=== PATIENT | male | born 1970 | race Caucasian/White ===

== ENCOUNTER 2020-08-14 10:21 | Outpatient (REF) | payer BC, SELFPAY ==
[2020-08-14 13:40] LABS: MANUAL DIFF FLAG NO
[2020-08-14 13:46] LABS: Basophils Percent Auto 0.3 % (0-2); Eosinophils Absolute Auto 0.3 X10*3/uL (0.0-0.4); Eosinophils Percent Auto 4.4 % (0-4); Hematocrit 46.4 % (42-52); Hemoglobin 15.3 g/dl (14.0-18.0); Imm Gran Abs Auto 0.02 X10*3/uL (0.00-0.03); Imm Gran Pct Auto 0.3 % (0.0-0.4); Lymphocytes Absolute Auto 1.2 X10*3/uL (1.2-4.9); Lymphocytes Percent Auto 19.3 % (20-40); Mean Corpuscular Hemoglobin 28.2 pg (27.0-33.0); Mean Corpuscular Volume 85.6 fL (80-98); Mean Platelet Volume 9.3 fL (9.4-12.4); Monocytes Absolute Auto 0.6 X10*3/uL (0.1-1.2); Monocytes Percent Auto 9.2 % (2-11); Neutrophils Absolute Auto 4.2 X10*3/uL (2.0-8.3); Neutrophils Percent Auto 66.5 % (45-73); Platelet Count 296 X10*3/uL (160-400); Red Blood Count 5.42 X10*6/uL (4.60-5.80); Red Cell Distribution Width 12.7 % (11.0-16.0); White Blood Count 6.3 X10*3/uL (4.8-10.8)
[2020-08-14 14:09] LABS: Alanine Aminotransferase 18 U/L (0-40); Albumin Level 4.2 g/dL (3.5-5.0); Alkaline Phosphatase 69 U/L (39-117); Anion Gap 12 (12-20); Aspartate Amino Transferase 15 U/L (5-37); Bilirubin Total 0.9 mg/dL (0.0-1.0); Blood Urea Nitrogen 14 mg/dL (9-16); Calcium 9.2 mg/dL (8.4-10.2); Carbon Dioxide 26 mmol/L (22-29); Chloride 102 mmol/L (96-108); Cholesterol 185 mg/dL; Estimated Glomerular Filt Rate > 60; Glucose Fasting 99 mg/dL (60-99); HDL Cholesterol 45 mg/dL; LDL Cholesterol Calculated 120 mg/dl; Potassium 4.3 mmol/l (3.3-5.1); Sodium 136 mmol/L (135-145); Total Protein 6.9 g/dL (6.5-8.0); Triglycerides 100 mg/dL
== END 2020-08-14 10:22 | disposition home or self-care (01) ==
LOC: HO.10HDL 10:21
PROVIDERS: Visit Provider Internal Medicine
DX: E55.9 Vitamin D deficiency, unspecified (principal); I10 Essential (primary) hypertension; Z00.00 Encounter for general adult medical examination without abnormal findings
CPT/HCPCS: 36415; 80053; 80061; 82306; 85025

== ENCOUNTER → 2020-10-07 15:27 | Outpatient (BNVA) | payer BC, SELFPAY | PROVIDERS: PCP Internal Medicine; Visit Provider Internal Medicine | DX: Z76.89 Persons encountering health services in other specified circumstances (principal) ==

== ENCOUNTER → 2020-10-22 09:13 | Outpatient (REF) | payer BC, SELFPAY | LOC: HO.SL 09:13 | PROVIDERS: Visit Provider Internal Medicine | DX: G47.33 Obstructive sleep apnea (adult) (pediatric) (principal) | CPT/HCPCS: 95806 ==

== ENCOUNTER → 2020-11-25 09:48 | Outpatient (BNVA) | payer BC, SELFPAY | PROVIDERS: PCP Internal Medicine; Visit Provider Internal Medicine ==

== ENCOUNTER 2021-02-22 10:19 | Outpatient (REF) | payer BC, SELFPAY ==
[2021-02-22 11:17] LABS: Anion Gap 13 (12-20); Blood Urea Nitrogen 16 mg/dL (9-16); Calcium 9.5 mg/dL (8.4-10.2); Carbon Dioxide 26 mmol/L (22-29); Chloride 107 mmol/L (96-108); Estimated Glomerular Filt Rate > 60; Glucose Random 97 mg/dL (60-115); Potassium 4.3 mmol/L (3.3-5.1); Sodium 142 mmol/L (135-145)
[2021-02-22 11:40] LABS: Vitamin D 25-OH Total 33.4 ng/mL (>30)
== END 2021-02-22 10:20 | disposition home or self-care (01) ==
LOC: HO.LAB 10:19
PROVIDERS: PCP Internal Medicine; Visit Provider Internal Medicine
DX: I10 Essential (primary) hypertension (principal); E55.9 Vitamin D deficiency, unspecified
CPT/HCPCS: 36415; 80048; 82306

== ENCOUNTER 2021-03-07 17:52 | Outpatient (REF) | payer BC, SELFPAY ==
[2021-03-07 18:42] LABS: Influenza A PCR NEGATIVE (Negative); Influenza B PCR NEGATIVE (Negative); Resp Syncy Virus RNA Qual PCR NEGATIVE (Negative); SARS COV2 PCR INHOUSE NEGATIVE (Negative)
== END 2021-03-07 17:53 | disposition home or self-care (01) ==
LOC: HO.LNP 17:52
PROVIDERS: Visit Provider Internal Medicine
DX: R05 Cough (principal); Z20.822 Contact with and (suspected) exposure to COVID-19
CPT/HCPCS: 0241U

== ENCOUNTER 2021-10-29 11:02 | Outpatient (REF) | payer BC, SELFPAY ==
[2021-10-29 11:20] LABS: COVID-19 Test Negative (Negative)
== END 2021-10-29 11:03 | disposition home or self-care (01) ==
LOC: HO.LNP 11:02
PROVIDERS: PCP Internal Medicine; Visit Provider Internal Medicine
DX: Z20.822 Contact with and (suspected) exposure to COVID-19 (principal)
CPT/HCPCS: 87635

== ENCOUNTER 2021-12-08 14:17 | Outpatient (REF) | payer BC, SELFPAY ==
[2021-12-08 15:06] LABS: Influenza A PCR NEGATIVE (Negative); Influenza B PCR NEGATIVE (Negative); Resp Syncy Virus RNA Qual PCR NEGATIVE (Negative); SARS COV2 PCR INHOUSE NEGATIVE (Negative)
== END 2021-12-08 14:18 | disposition home or self-care (01) ==
LOC: HO.LNP 14:17
PROVIDERS: Visit Provider Internal Medicine
DX: R53.83 Other fatigue (principal); R50.9 Fever, unspecified; Z20.822 Contact with and (suspected) exposure to COVID-19
CPT/HCPCS: 0241U

== ENCOUNTER → 2021-12-30 09:54 | Outpatient (BNVA) | payer BC, SELFPAY | PROVIDERS: PCP Internal Medicine; Visit Provider Internal Medicine | DX: Z13.89 Encounter for screening for other disorder (principal) ==

== ENCOUNTER 2022-05-01 08:21 | Day surgery (SDC) | payer BC, SELFPAY ==
[2022-04-27 12:51] VITALS: BMI 39.6
--- NOTE | 2022-04-30 09:26 | P.CONAN_ITS ---
Documented by User: Doris Harrell NP 04/30/22 09:26 HPI - Anesthesia Eval Consult details Narrative: 51yo M for Colonoscopy PMFSH Active Problems Active Problems: All Active Problems (Updated 04/27/22 @ 12:45 by Aliyah Narvaez, MAGDA) Nocturnal hypoxemia due to obesity (Acute) Obesity, morbid (Acute) Excessive daytime sleepiness (Acute) ONDINA (obstructive sleep apnea) (Acute) Obesity (BMI 35.0-39.9 without comorbidity) (Acute) Past Medical History Medical History (Updated 04/27/22 @ 12:45 by Aliyah Narvaez, RN) Anxiety and depression Asthma Cerebral palsy Excessive daytime sleepiness Nocturnal hypoxemia due to obesity Obesity (BMI 35.0-39.9 without comorbidity) Obesity, morbid ONDINA (obstructive sleep apnea) Surgical History Surgical History (Updated 04/27/22 @ 12:45 by Aliyah Narvaez, MAGDA) History of hip surgery History of surgery Hx of foot surgery Social History Social History Patient Tobacco Use Status: Former Tobacco user Are you DNR?: No Advance Directives: No Advance Directives Information Provided: Yes Nutrition Risks: No Nutritional Risk Meds Allergies Allergy/AdvReac Type Severity Reaction Status Date / Time aspirin [ASA] Allergy Unknown SWELLING Verified 04/27/22 12:47 Home Medications Medication Instructions Recorded Confirmed Last Taken Type atenolol 25 mg tablet 25 mg PO DAILY 10/07/20 04/27/22 Unknown History bupropion HCl 150 mg 24 hr tablet, 150 mg PO DAILY 10/07/20 04/27/22 Unknown History extended release bupropion HCl 300 mg 24 hr tablet, 300 mg PO DAILY 10/07/20 04/27/22 Unknown History extended release cholecalciferol (vitamin D3) 25 25 mcg PO DAILY 10/07/20 04/27/22 Unknown History mcg (1,000 unit) capsule trazodone 50 mg tablet 100 mg PO BEDTIME 11/25/20 04/27/22 Unknown History valsartan 160 mg tablet 160 mg PO DAILY 12/30/21 04/27/22 Unknown History Exam Exam Date and Time: April 30, [id number] Height,Weight and Vital Signs: Height 5 ft 7.5 in Weight 116.573 kg Assessment and Plan Assessment Anesthesia Assessment: Chart Reviewed Documented by User: Stefani Keith MD 05/01/22 09:33 [facility] Past Medical History Medical History (Updated 04/27/22 @ 12:45 by Aliyah Narvaez, MAGDA) Anxiety and depression Asthma Cerebral palsy Excessive daytime sleepiness Nocturnal hypoxemia due to obesity Obesity (BMI 35.0-39.9 without comorbidity) Obesity, morbid ONDINA (obstructive sleep apnea) Family History Family history of problems with anesthesia: No Surgical History Surgical History (Updated 04/27/22 @ 12:45 by Aliyah Narvaez RN) History of hip surgery History of surgery Hx of foot surgery History of Problems with Anesthesia: No Social History Social History Patient Tobacco Use Status: Former Tobacco user Are you DNR?: No Advance Directives: No Advance Directives Information Provided: Yes Nutrition Risks: No Nutritional Risk Meds Allergies Allergy/AdvReac Type Severity Reaction Status Date / Time aspirin [ASA] Allergy Unknown SWELLING Verified 04/27/22 12:47 Home Medications Medication Instructions Recorded Confirmed Last Taken Type atenolol 25 mg tablet 25 mg PO DAILY 10/07/20 04/27/22 Unknown History bupropion HCl 150 mg 24 hr tablet, 150 mg PO DAILY 10/07/20 04/27/22 Unknown History extended release bupropion HCl 300 mg 24 hr tablet, 300 mg PO DAILY 10/07/20 04/27/22 Unknown History extended release cholecalciferol (vitamin D3) 25 25 mcg PO DAILY 10/07/20 04/27/22 Unknown History mcg (1,000 unit) capsule trazodone 50 mg tablet 100 mg PO BEDTIME 11/25/20 04/27/22 Unknown History valsartan 160 mg tablet 160 mg PO DAILY 12/30/21 04/27/22 Unknown History Exam Airway Mallampati Class: III TM Dist: >3cm Neck ROM: Full Assessment and Plan Assessment Anesthesia Assessment: Anesthesia Plan Discussed Final Anesthetic Review Family History of Problems with Anesthesia: No History of Problems with Anesthesia: No NPO: Yes ASA Class: III Final Preanesthetic Review: No Changes in Pt Med Stat, Meds/Allgs Chart Reviewed, Consent Obtained/Reviewed and Anes Risks/Benef Reviewed Patient Risk: Intermediate Procedure Risk: Low Anesthetic Plan Anesthetic Plan: MAC: Disposition: Standard PACU
[2022-05-01 09:27] VITALS: BP 126/79; PULSE 72; RESP 18; TEMP 36.6; O2SAT 96
[2022-05-01] MEDS: Lactated Ringers 1,000 ML 100 ML IVCONT (09:28)
--- NOTE | 2022-05-01 10:21 | MHC.SHP ---
Pre-Procedural Eval Section A Date of Service: 05/01/22 Section B Chief Complaint: screening Details of Present Illness: see H&P no changes Relevant Family History (Specify if Yes): No Relevant Social History: None Present Medications: see Short Stay Collaborative assessment Medical History: No relevant PMH History of Previous Operations: No relevant previous surgery Allergies: Allergies Allergy/AdvReac Type Severity Reaction Status Date / Time aspirin [ASA] Allergy Unknown SWELLING Verified 04/27/22 12:47 Review of Systems Sugical H&P ROS: Negative: Constitution, Cardiovascular, Respiratory, Neurological, Psychiatric, Hem-Onc, Allergic/Immunologic, Gastrointestinal, Genitourinary, Musculoskeletal, Integumentary, Endocrine and Eyes/Ears/Nose/Throat Exam Surgical H&P Exam: Normal: HEENT, Normal: Heart, Normal: Lungs, Normal: Extremities, Normal: Abdomen, Normal: Skin and Normal: Neurological Plan I have reviewed the history and physical and performed a pertinent physical examination on my patient. No changes have occurred unless specified.
[2022-05-01 10:48] VITALS: BP 136/76; PULSE 76; RESP 16; TEMP 36.2; O2SAT 96
--- NOTE | 2022-05-01 10:52 | PM.OP ---
Brief Operative Note Date of Service: 05/01/22 Pre-op diagnosis: screening Post-op diagnosis: same (colon polyp) Surgeon: Alireza Davila Anesthesia: MAC Was an Automation Application Engineer used for this Procedure?: No Estimated blood loss (mL): 2 Pathology: other Condition: stable Disposition: PACU
[2022-05-01 11:03] VITALS: BP 128/89; PULSE 66; RESP 18; TEMP 36.2; O2SAT 96
--- NOTE | 2022-05-01 22:01 | OP_ITS ---
SURGEON: Alireza Davila MD INDICATIONS: Colon cancer screening. PREOPERATIVE DIAGNOSIS: POSTOPERATIVE DIAGNOSIS: PROCEDURE PERFORMED: Colonoscopy to the terminal ileum with biopsy. ESTIMATED BLOOD LOSS: COMPLICATIONS: ANESTHESIA: Monitored anesthesia care. ASSISTANTS: SPECIMENS: DESCRIPTION OF PROCEDURE: History and physical was performed. The risks and benefits of the procedure were explained to the patient. Informed consent was obtained. The patient was placed in the left lateral decubitus position. A digital rectal exam was performed and was found to be normal. The Olympus pediatric video colonoscope was introduced into the rectum and advanced to the cecum without difficulty. The cecum was identified by transillumination, palpation, and identification of the ileocecal valve. Examination was performed. The scope was removed. He tolerated the procedure well and was taken to recovery area in stable condition. FINDINGS: The terminal ileum was examined and appeared normal, the visualized colonic mucosa was normal, and the cecum was a less than 5 mm sessile polyp, which was removed with the biopsy forceps. No other polyps were identified. The quality of the prep was good. Retroflexed examination showed some small internal hemorrhoids. IMPRESSION: Colon polyp. RECOMMENDATION: Follow up the biopsy results. MD KATHERINE Zhong/ROSA / [id number]
== END 2022-05-01 11:45 | disposition home or self-care (01) ==
PROVIDERS: PCP Internal Medicine; Visit Provider Internal Medicine Gastroenterology
PROC: 0DJD8ZZ Inspection of Lower Intestinal Tract, Via Natural or Artificial Opening Endoscopic (ICD-10-PCS; CPT 45378; principal; 2022-05-01 10:20)
DX: Z12.11 Encounter for screening for malignant neoplasm of colon (principal); D12.0 Benign neoplasm of cecum; K64.8 Other hemorrhoids; G80.9 Cerebral palsy, unspecified; I10 Essential (primary) hypertension; J45.909 Unspecified asthma, uncomplicated; G47.33 Obstructive sleep apnea (adult) (pediatric); F41.8 Other specified anxiety disorders; Z79.899 Other long term (current) drug therapy; Z88.8 Allergy status to other drugs, medicaments and biological substances
CPT/HCPCS: 45380; 88305; J2250

== ENCOUNTER → 2022-12-30 10:30 | Outpatient (BNVA) | payer BC, SELFPAY | PROVIDERS: PCP Internal Medicine; Visit Provider Internal Medicine | DX: Z13.89 Encounter for screening for other disorder (principal) ==

== ENCOUNTER 2023-07-28 11:00 | Outpatient (AMB) | payer BC, SELFPAY ==
[2023-07-28 11:09] VITALS: BP 130/68; PULSE 121; O2SAT 95; BMI 41.5
--- NOTE | 2023-07-28 11:09 | MHC.OFFVIS ---
Intake Vital Signs 07/28/23 11:09 Height 5 ft 7.5 in Weight 269 lb BMI 41.5 BP 130/68 Blood Pressure Location Lt brachial Position Sitting Pulse 121 H Pulse Source Pulse Oximeter Pulse Oximetry (%) 95 Oxygen Delivery Method Room Air Intake Visit Reasons: ondina Intake Note: pt is here for follow up and states cpap is going well, no issues. Some coughing does occur mostly at end of the day. Contract Manager Required: No Allergies aspirin [ASA] Allergy (Unknown, Verified 07/28/23 11:22) SWELLING Medication List - Last Reconciled 07/28/23 by Pauline Starr MD atenolol 25 mg PO DAILY bupropion HCl 300 mg PO DAILY bupropion HCl 150 mg PO DAILY lorazepam 1 mg PO DAILY PRN losartan 1 tab PO DAILY melatonin 5 mg PO BEDTIME PRN multivitamin (Daily Multi-Vitamin tablet) 1 tab PO DAILY Do you need a note to return to daycare/school/sports/work: No HPI ondina HPI Details Ruma is 53 years old gentleman morbidly obese with BMI 41.5 , he is confirmed case of obstructive sleep apnea which is being treated with the CPAP. He uses CPAP with auto PAP mode and pressure setting of 6-16 cm. Has been very compliant and sleeps good. He voices no issues with the mask or CPAP device. His only failure is in weight reduction. Has he is not able to do much exercise, he remains relatively inactive, does not. Have full control on diet So has not been able to lose any weight. *RUMA IS A CASE OF CEREBRAL PALSY SINCE , AND HIS GAIT IS UNSTABLE, HE USES THE A SPECIAL CANE ON THE RIGHT SIDE. [facility] Medical History Anxiety and depression Asthma Cerebral palsy Excessive daytime sleepiness Nocturnal hypoxemia due to obesity Obesity (BMI 35.0-39.9 without comorbidity) Obesity, morbid ONDINA (obstructive sleep apnea) Surgical History History of hip surgery History of surgery Hx of foot surgery Social History Patient Tobacco Use Status: Former Tobacco user Review of Systems Const All systems reviewed & are unremarkable except as noted in HPI and below Reports snoring ENT Reports nasal congestion (mild intermittent ) and Reports disequilibrium Card Denies chest pain and Denies leg edema Resp Reports cough (mild intermittent ), Reports excessive phlegm production (in AMs .) and Reports snoring GI Reports heartburn (mild , in AMs ) Musc Reports abnormal gait (weak lower extermities sec. to cereberal palsy ) and Reports atrophy Neuro Reports abnormal gait (weak lower extermities sec. to cereberal palsy ) and Reports disequilibrium Psych Reports no additional complaints Physical Exam Vital Signs: Last Vital Signs Pulse 121 H 07/28/23 11:09 BP 130/68 07/28/23 11:09 Pulse Ox 95 07/28/23 11:09 Oxygen Delivery Method Room Air 07/28/23 11:09 BMI result Body Mass Index 41.5 No change in weight Const General: healthy appearing (Except for being overweight), comfortable, no acute distress, alert and awake Orientation/consciousness: patient oriented x3 HEENT Head: Yes normal to inspection General nose exam: No nasal polyps present and No nasal discharge present Face and sinus: Yes sinuses nontender Mouth: oropharynx normal Throat: Yes posterior oropharynx normal Eyes General: appearance normal, both eyes and all related structures Neck Neck: Yes normal visual inspection, Yes no lymphadenopathy, Yes trachea midline and Yes no JVD Thyroid: Thyroid normal Chest Chest palpation & inspection: normal inspection of the chest, normal palpation of entire chest wall and no tenderness Resp Effort & Inspection: normal respiratory effort Auscultation: clear to auscultation bilaterally, no crackles and no wheezes Percussion: percussion normal Cardio Palpation: normal PMI Rate: regular rate Rhythm: regular rhythm Heart sounds: no gallops and no murmurs Peripheral pulses: Peripheral pulses 2+ throughout GI Palpation (GI): Soft to palpation, nontender, No hepatosplenomegaly present and no masses Auscultation: normal bowel sounds Back/Spine/Pelvis Thoracic/Lumbar Spine: thoracic and lumbar spine normal to inspection and thoraco-lumbar ROM limited Skin General skin exam: no rashes or lesions noted Neuro General: patient oriented x3, No gait normal (Weak and spastic, uses a crutch on the right side.) and no focal motor deficits Cranial nerves: Yes CN's II-XII intact bilaterally Extrem General: Yes normal to inspection, Yes no clubbing, cyanosis or edema and Yes no calf tenderness Psych Appearance: grossly normal and well kempt Speech and movement: Normal speech and movement present Results Reviewed Results Reviewed: COMPLIANCE REPORT FOR THE LAST 30 NIGHTS IS REVIEWED. IS 11-12 CM. NO AIR LEAK NOTED. RESIDUAL AHI ONLY 1.1 USED HE HAS USED 30/30 NIGHTS, 100%. AVERAGE USE PER NIGHT 5 HOURS 46 MINUTES Assessment & Plan Assessment & Plan (1) ONDINA (obstructive sleep apnea): Comment: HE HAS MILD TO MODERATE DEGREE OF OBSTRUCTIVE SLEEP APNEA, ASSOCIATED WITH THE NOCTURNAL HYPOXEMIA. PATIENT HAS BEEN USING CPAP REGULARLY WITH 100% COMPLIANCE, HE IS BENEFITING AND REPORTS BEEN APPROVED QUALITY OF SLEEP. THE RESULTS OF COMPLIANCE REPORT SHARED WITH HIM AND HE IS ENCOURAGED TO CONTINUE USING IT REGULARLY . WILL SEE HIM IN SIX MONTHS . Code(s): G47.33 - Obstructive sleep apnea (adult) (pediatric) (2) Obesity, morbid: Comment: THIS IS A CHRONIC PROBLEM IN HIS CASE, ANY SIGNIFICANT WEIGHT REDUCTION IS NOT EXPECTED, BECAUSE HE REALLY CANNOT DO MUCH EXERCISE. DUE TO CEREBRAL PALSY AND IMPAIRED GAIT . ADVISE THAT HE SHOULD FOCUS MORE ON DIET FOR REDUCING THE CALORIES INTAKE AND ALSO FOR REDUCING THE AMOUNT OF CARBOHYDRATES. Code(s): E66.01 - Morbid (severe) obesity due to excess calories Coding Level of Care Code Est Pt Level 3 (93780) Diagnoses ONDINA (obstructive sleep apnea) G47.33 Obesity, morbid E66.01
== END 2023-07-28 11:25 | disposition home or self-care (01) ==
PROVIDERS: PCP Internal Medicine; Visit Provider Internal Medicine
DX: G47.33 Obstructive sleep apnea (adult) (pediatric) (principal); E66.01 Morbid (severe) obesity due to excess calories
CPT/HCPCS: 99213

== ENCOUNTER → 2023-07-28 11:00 | Outpatient (BNVA) | payer BC, SELFPAY | PROVIDERS: PCP Internal Medicine; Visit Provider Internal Medicine ==

== ENCOUNTER 2024-01-10 09:51 | Outpatient (REF) | payer BC, SELFPAY ==
[2024-01-10 10:11] LABS: MANUAL DIFF FLAG NO
[2024-01-10 10:55] LABS: Basophils Percent Auto 0.7 % (0-2); Eosinophils Absolute Auto 0.3 X10*3/uL (0.0-0.4); Eosinophils Percent Auto 4.3 % (0-4); Hematocrit 46.6 % (42.0-52.0); Hemoglobin 15.6 g/dl (14.0-18.0); Imm Gran Abs Auto 0.03 X10*3/uL (0.00-0.03); Imm Gran Pct Auto 0.5 % (0.0-0.4); Lymphocytes Absolute Auto 1.2 X10*3/uL (1.2-4.9); Lymphocytes Percent Auto 20.5 % (20-40); Mean Corpuscular HGB Conc 33.5 g/dl (31.0-36.0); Mean Corpuscular Hemoglobin 28.9 pg (27.0-33.0); Mean Corpuscular Volume 86.5 fL (80.0-98.0); Monocytes Absolute Auto 0.6 X10*3/uL (0.1-1.2); Monocytes Percent Auto 9.6 % (2-11); Neutrophils Absolute Auto 3.8 x10*3/uL (2.0-8.3); Neutrophils Percent Auto 64.4 % (45-73); Platelet Count 252 X10*3/uL (160-400); Red Blood Count 5.39 X10*6/uL (4.60-5.80); Red Cell Distribution Width 13.2 % (11.0-16.0); White Blood Count 5.9 X10*3/uL (4.8-10.8)
[2024-01-10 12:00] LABS: Alanine Aminotransferase 29 U/L (0-40); Albumin Level 4.3 g/dL (3.5-5.0); Alkaline Phosphatase 67 U/L (39-117); Anion Gap 12 (12-20); Aspartate Amino Transferase 22 U/L (5-37); Bilirubin Total 1.1 mg/dL (0.0-1.0); Blood Urea Nitrogen 16 mg/dL (9-16); Calcium 9.8 mg/dL (8.4-10.2); Carbon Dioxide 28 mmol/L (22-29); Chloride 104 mmol/L (96-108); Cholesterol 185 mg/dL (<200); Estimated Glomerular Filt Rate > 60; Glucose Fasting 101 mg/dL (60-99); HDL Cholesterol 47 mg/dL (>40); LDL Cholesterol Calculated 117 mg/dL (<100); Potassium 4.1 mmol/L (3.3-5.1); Sodium 140 mmol/L (135-145); Total Protein 7.2 g/dL (6.5-8.0); Triglycerides 106 mg/dL (<150)
[2024-01-10 12:01] LABS: Thyroid Stimulating Hormone 1.03 uIU/mL (0.32-4.0)
== END 2024-01-10 09:52 | disposition home or self-care (01) ==
LOC: HO.LAB 09:51
PROVIDERS: PCP Internal Medicine; Visit Provider Internal Medicine
DX: Z12.5 Encounter for screening for malignant neoplasm of prostate (principal); I10 Essential (primary) hypertension; R63.5 Abnormal weight gain; K21.9 Gastro-esophageal reflux disease without esophagitis
CPT/HCPCS: 36415; 80053; 80061; 84153; 84443; 85025

== ENCOUNTER 2024-01-26 10:18 | Outpatient (AMB) | payer BC, SELFPAY ==
[2024-01-26 10:24] VITALS: BP 140/88; PULSE 68; O2SAT 98; BMI 41.7
--- NOTE | 2024-01-26 10:24 | MHC.OFFVIS ---
Vital Signs 01/26/24 10:24 Height 5 ft 7.5 in Weight 270 lb BMI 41.7 BP 140/88 H Blood Pressure Location Lt brachial Position Sitting Pulse 68 Pulse Source Pulse Oximeter Pulse Oximetry (%) 98 Oxygen Delivery Method Room Air Intake Visit Reasons: [place] Intake Note: pt is here for follow up and states he is using cpap, getting supplies when ordered. Good Humor Vendor Required: No Allergies aspirin [ASA] Allergy (Unknown, Verified 01/26/24 10:42) SWELLING Medication List - Last Reconciled 01/26/24 by Pauline Starr MD atenolol 25 mg PO DAILY bupropion HCl XL 300 mg PO DAILY bupropion HCl XL 150 mg PO DAILY lorazepam 1 mg PO DAILY PRN losartan 1 tab PO DAILY melatonin 5 mg PO BEDTIME PRN multivitamin (Daily Multi-Vitamin tablet) 1 tab PO DAILY Do you need a note to return to daycare/school/sports/work: No HPI HPI [place]: Details: Jac is 53 years old gentleman with cerebral palsy, impaired gait and uses a cane to walk around. He has not physically very active. He is being treated for obstructive sleep apnea, and he is very happy with the use of his CPAP. He sleeps about 5-6 hours per night. .Denies any daytime sleepiness He has not missed using it for any prolonged periods. [facility] Medical History Asthma Anxiety and depression Nocturnal hypoxemia due to obesity Obesity, morbid Excessive daytime sleepiness Cerebral palsy [place] (obstructive sleep apnea) Obesity (BMI 35.0-39.9 without comorbidity) Surgical History History of hip surgery Hx of foot surgery History of surgery Social History Patient Tobacco Use Status: Former Tobacco user Review of Systems Const All systems reviewed & are unremarkable except as noted in HPI and below Reports snoring ENT Reports nasal congestion (mild intermittent ) and Reports disequilibrium Card Denies chest pain and Denies leg edema Resp Reports cough (mild intermittent ), Reports excessive phlegm production (in AMs .) and Reports snoring GI Reports heartburn (mild , in AMs ) Musc Reports abnormal gait (weak lower extermities sec. to cereberal palsy ) and Reports atrophy Neuro Reports abnormal gait (weak lower extermities sec. to cereberal palsy ) and Reports disequilibrium Psych Reports no additional complaints Physical Exam Vital Signs: Last Vital Signs Pulse 68 01/26/24 10:24 BP 140/88 H 01/26/24 10:24 Pulse Ox 98 01/26/24 10:24 Oxygen Delivery Method Room Air 01/26/24 10:24 BMI result Body Mass Index 41.7 No change in weight Const General: healthy appearing (Except for being overweight), comfortable, no acute distress, alert and awake Orientation/consciousness: patient oriented x3 HEENT Head: Yes normal to inspection General nose exam: No nasal polyps present and No nasal discharge present Face and sinus: Yes sinuses nontender Mouth: oropharynx normal Throat: Yes posterior oropharynx normal Eyes General: appearance normal, both eyes and all related structures Neck Neck: Yes normal visual inspection, Yes no lymphadenopathy, Yes trachea midline and Yes no JVD Thyroid: Thyroid normal Chest Chest palpation & inspection: normal inspection of the chest, normal palpation of entire chest wall and no tenderness Resp Effort & Inspection: normal respiratory effort Auscultation: clear to auscultation bilaterally, no crackles and no wheezes Percussion: percussion normal Cardio Palpation: normal PMI Rate: regular rate Rhythm: regular rhythm Heart sounds: no gallops and no murmurs Peripheral pulses: Peripheral pulses 2+ throughout GI Palpation (GI): Soft to palpation, nontender, No hepatosplenomegaly present and no masses Auscultation: normal bowel sounds Back/Spine/Pelvis Thoracic/Lumbar Spine: thoracic and lumbar spine normal to inspection and thoraco-lumbar ROM limited Skin General skin exam: no rashes or lesions noted Neuro General: patient oriented x3, No gait normal (Weak and spastic, uses a crutch on the right side.) and no focal motor deficits Cranial nerves: Yes CN's II-XII intact bilaterally Extrem General: Yes normal to inspection, Yes no clubbing, cyanosis or edema and Yes no calf tenderness Psych Appearance: grossly normal and well kempt Speech and movement: Normal speech and movement present Results Reviewed Results Reviewed: Compliance report for the last 30 nights indicates that he has used 28/30 nights, 93% of the time Average use per night 5 hours 24 minutes. Pressure used mostly 11-12 cm. There is no leak. And residual AHI 1.0 Assessment & Plan Assessment & Plan (1) Obesity, morbid: Comment: THIS IS A CHRONIC PROBLEM IN HIS CASE, ANY SIGNIFICANT WEIGHT REDUCTION IS NOT EXPECTED, BECAUSE HE REALLY CANNOT DO MUCH EXERCISE. DUE TO CEREBRAL PALSY AND IMPAIRED GAIT . Code(s): E66.01 - Morbid (severe) obesity due to excess calories Category: Medical Plan: ADVISE THAT HE SHOULD FOCUS MORE ON DIET FOR REDUCING THE CALORIES INTAKE AND ALSO FOR REDUCING THE AMOUNT OF CARBOHYDRATES. (2) [place] (obstructive sleep apnea): Comment: HE HAS MILD TO MODERATE DEGREE OF OBSTRUCTIVE SLEEP APNEA, ASSOCIATED WITH THE NOCTURNAL HYPOXEMIA. PATIENT HAS BEEN USING CPAP REGULARLY WITH 100% COMPLIANCE, HE IS BENEFITING AND REPORTS BEEN APPROVED QUALITY OF SLEEP. Code(s): G47.33 - Obstructive sleep apnea (adult) (pediatric) Category: Medical Plan: THE RESULTS OF COMPLIANCE REPORT SHARED WITH HIM AND HE IS COMMENDED FOR HIS GOOD COMPLIANCE. ADVISED THAT HE SHOULD USE FOR MORE THAN 6 HOURS EVERY NIGHT. (3) Nocturnal hypoxemia due to obesity: Comment: NOCTURNAL HYPOXEMIA IS PART OF OBESITY AND OBSTRUCTIVE SLEEP APNEA. HOPEFULLY IT WILL RESOLVE WITH THE USE OF THE NONINVASIVE VENTILATORY SUPPORT. Code(s): E66.9 - Obesity, unspecified; G47.36 - Sleep related hypoventilation in conditions classified elsewhere Category: Medical Plan: NO FURTHER ACTION NEEDED Coding Level of Care Code Est Pt Level 3 (23153) Diagnoses Obesity, morbid E66.01 [place] (obstructive sleep apnea) G47.33 Nocturnal hypoxemia due to obesity E66.9; G47.36
== END 2024-01-26 10:43 | disposition home or self-care (01) ==
PROVIDERS: PCP Internal Medicine; Visit Provider Internal Medicine
DX: E66.01 Morbid (severe) obesity due to excess calories (principal); G47.33 Obstructive sleep apnea (adult) (pediatric); E66.9 Obesity, unspecified; G47.36 Sleep related hypoventilation in conditions classified elsewhere
CPT/HCPCS: 99213

== ENCOUNTER → 2024-01-26 10:18 | Outpatient (BNVA) | payer BC, SELFPAY | PROVIDERS: PCP Internal Medicine; Visit Provider Internal Medicine ==

== ENCOUNTER 2024-08-22 14:20 | Outpatient (AMB) | payer BC, SELFPAY ==
--- NOTE | 2024-08-22 14:26 | A.OFFVIS_ITS ---
Vital Signs 08/22/24 14:27 Height 5 ft 7.5 in Weight 275 lb 9.245 oz BMI 42.5 BP 132/90 H Blood Pressure Location Lt brachial Position Sitting Pulse 82 Pulse Source Pulse Oximeter Pulse Oximetry (%) 96 Oxygen Delivery Method Room Air Intake Visit Reasons: [place] Intake Note: pt is here for [place] follow up and states he is doing okay with cpap. 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 HE HAS THE MILD DEGREE OF CEREBRAL PALSY WITH IMPAIRED GAIT, WALKS AROUND WITH THE CRUTCH . WAS RIGHT SIDE HE REMAINS RELATIVELY SEDENTARY AND IS NOT WATCHING HIS DIET. HE IS USING CPAP VERY REGULARLY AND SLEEPS WELL. HE DENIES ANY ISSUE WITH THE MASK OR CPAP MACHINE. [facility] Medical History Asthma Anxiety and depression Nocturnal hypoxemia due to obesity Obesity, morbid Excessive daytime sleepiness Cerebral palsy AMERICA (obstructive sleep apnea) Obesity (BMI 35.0-39.9 without comorbidity) Surgical History History of hip surgery Hx of foot surgery History of surgery Social History Patient Tobacco Use Status: Former Tobacco user Review of Systems Const All systems reviewed & are unremarkable except as noted in HPI and below Reports snoring ENT Reports nasal congestion (mild intermittent ) and Reports disequilibrium Card Denies chest pain and Denies leg edema Resp Reports cough (mild intermittent ), Reports excessive phlegm production (in AMs .) and Reports snoring GI Reports heartburn (mild , in AMs ) Musc Reports abnormal gait (weak lower extermities sec. to cereberal palsy ) and Reports atrophy Neuro Reports abnormal gait (weak lower extermities sec. to cereberal palsy ) and Reports disequilibrium Psych Reports no additional complaints Physical Exam Vital Signs: Last Vital Signs Pulse 82 08/22/24 14:27 BP 132/90 H 08/22/24 14:27 Pulse Ox 96 08/22/24 14:27 Oxygen Delivery Method Room Air 08/22/24 14:27 BMI result Body Mass Index 42.5 No change in weight Const General: healthy appearing (Except for being overweight), comfortable, no acute distress, alert and awake Orientation/consciousness: patient oriented x3 HEENT Head: Yes normal to inspection General nose exam: No nasal polyps present and No nasal discharge present Face and sinus: Yes sinuses nontender Mouth: oropharynx normal Throat: Yes posterior oropharynx normal Eyes General: appearance normal, both eyes and all related structures Neck Neck: Yes normal visual inspection, Yes no lymphadenopathy, Yes trachea midline and Yes no JVD Thyroid: Thyroid normal Chest Chest palpation & inspection: normal inspection of the chest, normal palpation of entire chest wall and no tenderness Resp Effort & Inspection: normal respiratory effort Auscultation: clear to auscultation bilaterally, no crackles and no wheezes Percussion: percussion normal Cardio Palpation: normal PMI Rate: regular rate Rhythm: regular rhythm Heart sounds: no gallops and no murmurs Peripheral pulses: Peripheral pulses 2+ throughout GI Palpation (GI): Soft to palpation, nontender, No hepatosplenomegaly present and no masses Auscultation: normal bowel sounds Back/Spine/Pelvis Thoracic/Lumbar Spine: thoracic and lumbar spine normal to inspection and thoraco-lumbar ROM limited Skin General skin exam: no rashes or lesions noted Neuro General: patient oriented x3, No gait normal (Weak and spastic, uses a crutch on the right side.) and no focal motor deficits Cranial nerves: Yes CN's II-XII intact bilaterally Extrem General: Yes normal to inspection, Yes no clubbing, cyanosis or edema and Yes no calf tenderness Psych Appearance: grossly normal and well kempt Speech and movement: Normal speech and movement present Results Reviewed Results Reviewed: COMPLIANCE REPORT FOR THE LAST 30 NIGHTS REVIEWED AND HE HAS USED, 30/30 NIGHTS, 100% AVERAGE USE PER NIGHT 5 HOURS 38 MINUTES. PRESSURE USED MOSTLY 11-13 CM. THERE IS NO SIGNIFICANT. AIR LEAK RESIDUAL AHI ONLY 0.8 Assessment & Plan Assessment & Plan (1) Obesity, morbid: Comment: THIS IS A CHRONIC PROBLEM IN HIS CASE, ANY SIGNIFICANT WEIGHT REDUCTION IS NOT EXPECTED, BECAUSE HE REALLY CANNOT DO MUCH EXERCISE. DUE TO CEREBRAL PALSY AND IMPAIRED GAIT . Code(s): E66.01 - Morbid (severe) obesity due to excess calories Category: Medical Plan: TALKED TO HIM IN DETAIL AND STRESS THAT HE NEEDS TO CUT DOWN THE CALORIES INTAKE , IN ORDER TO LOSE WEIGHT. (2) [place] (obstructive sleep apnea): Comment: HE HAS MILD TO MODERATE DEGREE OF OBSTRUCTIVE SLEEP APNEA, ASSOCIATED WITH MILD NOCTURNAL HYPOXEMIA. PATIENT HAS BEEN USING CPAP REGULARLY WITH 100% COMPLIANCE, HE IS BENEFITING AND REPORTS THAT HE HAS GOOD QUALITY OF SLEEP. Code(s): G47.33 - Obstructive sleep apnea (adult) (pediatric) Category: Medical Plan: COMMENDED FOR GOOD COMPLIANCE AND ADVISED TO CONTINUE USING THE CPAP REGULARLY EVERY NIGHT. Coding Level of Care Code Est Pt Level 3 (39724) Diagnoses Obesity, morbid E66.01 AMERICA (obstructive sleep apnea) G47.33
[2024-08-22 14:27] VITALS: BP 132/90; PULSE 82; O2SAT 96; BMI 42.5
== END 2024-08-22 16:08 | disposition home or self-care (01) ==
PROVIDERS: PCP Internal Medicine; Visit Provider Internal Medicine
DX: E66.01 Morbid (severe) obesity due to excess calories (principal); G47.33 Obstructive sleep apnea (adult) (pediatric)
CPT/HCPCS: 99213

== ENCOUNTER → 2024-08-22 14:20 | Outpatient (BNVA) | payer BC, SELFPAY | PROVIDERS: PCP Internal Medicine; Visit Provider Internal Medicine ==

== ENCOUNTER 2025-03-07 09:10 | Outpatient (AMB) | payer BC, SELFPAY ==
--- NOTE | 2025-03-07 09:19 | A.OFFPC_ITS ---
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 Accompanied by: Self / Same As Patient Allergies aspirin [ASA] Allergy (Unknown, Verified 03/07/25 09:19) SWELLING Medication List - Last Reconciled 03/07/25 by EARL Padron atenolol 25 mg PO DAILY bupropion HCl XL 150 mg PO DAILY CPAP As directed lorazepam 1 mg PO DAILY PRN losartan 100 mg PO DAILY melatonin 5 mg PO BEDTIME PRN multivitamin (Daily Multi-Vitamin tablet) 1 tab PO DAILY HPI HPI Comments History of Present Illness Details 54-year-old male with history of hyperte nsion, major depressive disorder, cerebral palsy, anxiety, obesity, obstructive sleep apnea presents to the office today for management of chronic conditions and to establish care. Hypertension-on losartan 100 mg daily and atenolol 25 mg daily. Blood pressure in the office Major depressive disorder/anxiety-reports his symptoms have been well-controlled on 450 mg of bupropion XL, however he did run out of medication about 2 months ago. He had been following with [facility] and was between providers and was unable to secure refills. Since then, reports depression has been increased with PHQ-9 score of 8. He does state this is somewhat affecting his life. He has had passive suicidal thoughts in the past but reports these are at [place] and denies any intent/plan. He does have appointment with his psychiatrist tomorrow. Reports only occasional use of lorazepam ONDINA-compliant with CPAP. Following every 6 months with pulmonology Morbid obesity-he is struggling with diet. Reports he has tried delivery foods that are healthy but is inconsistent. He is limited with mobility secondary to his cerebral palsy but has been active at his job per his report. No additional exercise. He is interested in a referral to dietitian. Health maintenance: Colonoscopy [id number] due 2031 ROS: General: No fevers, malaise, unintentional weight loss Cardiovascular: No chest pain, palpitations, or leg edema Respiratory: No shortness of breath, wheezing, cough MSK: No myalgia, back pain Neuro: No headaches, weakness, paresthesias Psych: see hpi Skin: No rashes or lesions EXAM: Constitutional - Awake and Alert, No apparent distress Eyes - PERRL Cardiovascular - S1S2, RRR, Respiratory - Normal lung expansion, Normal respiratory effort, No respiratory distress, CTA bilaterally Extremities - no calf tenderness bilaterally, mild venous stasis changes Skin - Warm/Dry Neurological - Alert & oriented x3 Psychological - Appropriate affect [facility] Medical History (Updated 03/07/25 @ 09:24 by EARL Padron) Colon polyps Hypertension Major depressive disorder Asthma Anxiety and depression Nocturnal hypoxemia due to obesity Obesity, morbid Excessive daytime sleepiness Cerebral palsy ONDINA (obstructive sleep apnea) Obesity (BMI 35.0-39.9 without comorbidity) Surgical History (Updated 03/07/25 @ 09:23 by EARL Padron) History of colonoscopy (~05/01/22) History of hip surgery Hx of foot surgery History of surgery Social History Patient Tobacco Use Status: Former Tobacco user Questionnaire PHQ-9 Over the last 2 weeks, how often have you been bothered by any of the following problems? 1. Little interest or pleasure in doing things: several days 2. Feeling down, depressed, or hopeless: several days 3. Trouble falling or staying asleep, or sleeping too much: several days 4. Feeling tired or having little energy: several days 5. Poor appetite or overeating: several days 6. Feeling bad about yourself - or that you are a failure or have let yourself or your family down: several days 7. Trouble concentrating on things, such as reading the newspaper or watching television: several days 8. Moving or speaking so slowly that other people could have noticed. Or the opposite - being so fidgety or restless that you have been moving around a lot more than usual: not at all 9. Thoughts that you would be better off or of hurting yourself in some way: several days Total score: 8 Source: Developed by Drs. Matias Chiang, Sangeeta Parekh, Jose Martinez and colleagues, with an educational joan from [employer]. Thrive Questionnaire Date Thrive assessed: 03/07/25 I am a: Patient What is your living situation today?: I have a steady place to live Within the past 12 months, did the food you bought not last and you didn't have the money to get more?: Never true Within the past 12 months, did you worry whether your food would run out before you got money to buy more?: Never true Do you have trouble paying for medicines?: No Do you have trouble getting transportation to medical appointments?: No Do you have trouble paying your heating and electricity bill?: No Do you have trouble taking care of your child, family member or friend?: No Do you have trouble with day-to-day activities such as bathing, preparing meals, shopping, managing finances, etc.?: No Are you currently unemployed and looking for a job?: No Are you interested in more education?: No Please select the resources that you would like help with: None THRIVE Score: 0 LAURI-7 AMB Questionnaire LAURI-7 Date LAURI - 7 assessed: 03/07/25 Feeling nervous, anxious, or on edge: 1 = Several days Not being able to stop or control worryin = Several days Worrying too much about different things: 1 = Several days Trouble relaxin = Not at all Being so restless that it is hard to sit still: 1 = Several days Becoming easily annoyed or irritable: 1 = Several days Feeling afraid as if something awful might happen: 0 = Not at all Total LAURI-7 score (0-4 normal; 5-9 mild; 10-14 moderate; 15-21 severe): 5 Source: Developed by Drs. Matias Chiang, Sangeeta Parekh, Jose Martinez and colleagues, with an educational joan from [employer]. Physical exam (Primary Care) Vital Signs: Last Vital Signs Temp 96.2 F L 03/07/25 09:21 Pulse 75 03/07/25 09:21 Resp 16 03/07/25 09:21 BP 126/82 03/07/25 09:37 Pulse Ox 97 03/07/25 09:21 Oxygen Delivery Method Room Air 03/07/25 09:21 Tobacco/Smoking Status: Tobacco use Status Patient Tobacco Use Status Former Tobacco user 03/07/25 09:23 Coding Level of Care Code New Pt Level 4 (71486) Complex EM visit Add On G2211 Diagnoses Major depressive disorder F32.9 Hypertension I10 Obesity, morbid E66.01 ONDINA (obstructive sleep apnea) G47.33 Assessment & Plan Assessment & Plan (1) Major depressive disorder: Code(s): F32.9 - Major depressive disorder, single episode, unspecified Category: Medical Plan: Uncontrolled with PHQ-9 8. Currently denies any active SI. Initiate bupropion 150 mg XL daily with increase at the discretion with psychiatrist. Follow-up with psychiatry as scheduled. Continue using lorazepam only as needed for anxiety (2) Hypertension: Code(s): I10 - Essential (primary) hypertension Category: Medical Plan: Controlled on recheck. Continue losartan and atenolol (3) Obesity, morbid: Comment: THIS IS A CHRONIC PROBLEM IN HIS CASE, ANY SIGNIFICANT WEIGHT REDUCTION IS NOT EXPECTED, BECAUSE HE REALLY CANNOT DO MUCH EXERCISE. DUE TO CEREBRAL PALSY AND IMPAIRED GAIT . Code(s): E66.01 - Morbid (severe) obesity due to excess calories Category: Medical Plan: As refer to dietitian. Consult on healthy diet and increase activity including weights (4) ONDINA (obstructive sleep apnea): Comment: HE HAS MILD TO MODERATE DEGREE OF OBSTRUCTIVE SLEEP APNEA, ASSOCIATED WITH MILD NOCTURNAL HYPOXEMIA. PATIENT HAS BEEN USING CPAP REGULARLY WITH 100% COMPLIANCE, HE IS BENEFITING AND REPORTS THAT HE HAS GOOD QUALITY OF SLEEP. Code(s): G47.33 - Obstructive sleep apnea (adult) (pediatric) Category: Medical Plan: Continue CPAP, follow-up with pulmonology Plan Follow-up in the office in 6 months. Labs to be completed following visit today as well as several days prior to next appointment. Refer to dietitian Orders: Orders Basic Metabolic Panel Today E66.9 - Obesity, unspecified, F32.9 - Major depressive disorder, single episode, unspecified, G47.33 - Obstructive sleep apnea (adult) (pediatric), I10 - Essential (primary) hypertension TSH reflex Free T4 Today E66.9 - Obesity, unspecified, F32.9 - Major depressive disorder, single episode, unspecified, G47.33 - Obstructive sleep apnea (adult) (pediatric), I10 - Essential (primary) hypertension Complete Blood Count Auto Diff Today E66.9 - Obesity, unspecified, F32.9 - Major depressive disorder, single episode, unspecified, G47.33 - Obstructive sleep apnea (adult) (pediatric), I10 - Essential (primary) hypertension Hemoglobin A1c Today E66.9 - Obesity, unspecified, F32.9 - Major depressive disorder, single episode, unspecified, G47.33 - Obstructive sleep apnea (adult) (pediatric), I10 - Essential (primary) hypertension Lipid Panel Today E66.9 - Obesity, unspecified, F32.9 - Major depressive disorder, single episode, unspecified, G47.33 - Obstructive sleep apnea (adult) (pediatric), I10 - Essential (primary) hypertension Liver Panel Today E66.9 - Obesity, unspecified, F32.9 - Major depressive disorder, single episode, unspecified, G47.33 - Obstructive sleep apnea (adult) (pediatric), I10 - Essential (primary) hypertension Referrals Ophthalmic Lens Inspector Nutrition Referral E66.01 - Morbid (severe) obesity due to excess calories Medications: New bupropion HCl XL 150 mg PO DAILY 90 tabs 1RF
[2025-03-07 09:21] VITALS: BP 146/84; PULSE 75; RESP 16; TEMP 35.7; O2SAT 97
[2025-03-07 09:37] VITALS: BP 126/82
--- OUTSIDE RECORDS SUMMARY | 2025-03-07 09:44 | XMS_ITS | Patient Health Record ---
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 . . for . Active Valsartan 160 MG 1 tablet Orally Once a day for 30 day(s) Not-Taking LORazepam 1 MG Orally PRN Activ e Losartan Potassium 25 MG 1 tablet Orally Once a day for 30 day(s) Not-Taking traZODone HCl Not-Ta tadeo Ciclopirox Olamine 0.77% external Apply to effected areas twice a day for 30 days 05/27/2016 Not-Taking Escitalopram Oxalate 5 MG 1 tablet Orall y Once a day Not-Taking Melatonin PRN Active Losartan Potassium 25 MG as directed Active Wellbutrin XL 450 mg 1 tablet every morn ing Orally Once a day Active Atenolol 25 MG TAKE 1 TABLET BY OSEAS TH EVERY DAY Oral for 90 Active Immunizations Vaccine Route Administration Date Status Comme nts COVID-19 Moderna Vaccine Unknown 12/15/2020 Administered First Dose: 10/29 10/17 Social History Tobacco Use: Social History Observation Description Date Details (start date - stop date) Never Smoker NA - NA Tobacco use other than smoking: Question Answer Notes Are you an other tobacco user? No Tobacco Control (Standard) Question Answer Notes Tobacco use: Nonsmoker Additional Findings: Tobacco non-user Current no nsmoker AUDIT-C (Standard) Question Answer Notes Did you have a drink containing alcohol in the p ast year? 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 Problem Localized, primary osteoarthritis of the ankle and/or foot (581298504) Primary osteoarthriti s, right ankle and foot (M19.071) Active confirmed Problem Localized, primary osteoarthritis of the ankle and/or foot (917260125) Primary osteoarthriti s, left ankle and foot (M19.072) Active confirmed Problem Acquired hammer toe of right foot (0256016039287552) Other hammer toe(s) (acquired), right foot (M20.41) Active confirmed Problem 042492983 Hammertoe of left foot (M20.42) Active confirmed Problem Ulcer of toe of right foot (disorder) (06441948982155990 ) Skin ulcer of toe of right foot, limited to breakdown of skin (L97.511) Active confirmed Problem 64841017171748 Pressure injury of left heel, stage 1 (L89.621) Active confirmed Problem Localized, primary osteoarthritis of the ankle and/or foot (838913228) Arthritis of joint of lesser toe, right (M19.071) Active confirmed Problem Ulcer of toe of left foot (disorder) (03560153477657044 ) Skin ulcer of toe of left foot, limited to breakdown of skin (L97.521) Active confirmed Vital Signs Blood pressure diastolic 80 mm Hg 11/27/2024 Height 5ft8in in 11/27/2024 Blood pressure systolic 138 mm Hg 11/27/2024 Weight 274 lbs 11/27/2024 BMI 41.66 kg/m2 11/27/2024 Procedures Procedure Date Ordered Date Performed Result Body Sit e 32144-WIWUXBM NAIL, 6 OR MORE 05/18/2024 N/A 61995- Debride <25 sq cm 05/18/2024 N/A 20710-AEJNGER NAIL, 6 OR MORE 08/28/2024 N/A 03752-GOYS SKIN LESIONS, 2 TO 4 08/28/2024 N/A 74972-EBBPKTR NAIL, 6 OR MORE 11/27/2024 N/A 52355-Jlrnhlke Plate 11/27/2024 N/A Encounters Encounter Location Date Provider Diagnosis [address] [address] 05/18/2024 Swapna Black Tinea unguium B35.1 ; Hammertoe of left foot M20.42 ; Pain in right toe(s) M79.674 ; Pain in left toe(s) M79.675 ; 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 ; Pain in right toe(s) M79.674 and Skin ulcer of toe of left foot, limited to breakdown of skin L97.[address] [address] 08/28/2024 Swapna Black Tinea unguium B35.1 ; Hammertoe of left foot M20.42 ; Pain in right toe(s) M79.674 ; Pain in left toe(s) M79.675 ; 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 and Pain in right toe(s) M79.[address] [address] 11/27/2024 Swapna Black Tinea unguium B35.1 ; Ingrown nail L60.0 ; Pain in right toe(s) M79.674 ; Pain in left toe(s) M79.675 and 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 Assessments Encounter Date Diagnosis (ICD Code) Assessment Notes Treatment Notes Treatment Clinical Notes Section Notes 05/18/2024 Tinea unguium (ICD-10 - B35.1) 05/18/2024 Hammertoe of left foot (ICD-10 - M20.42) 08/28/2024 Tinea unguium (ICD-10 - B35.1) 08/28/2024 Hammertoe of left foot (ICD-10 - M20.42) 11/27/2024 Tinea unguium (ICD-10 - B35.1) 11/27/2024 Ingrown nail (ICD-10 - L60.0) 11/27/2024 Pain in right toe(s) (ICD-10 - M79.674) 08/28/2024 Pain in right toe(s) (ICD-10 - M79.674) 05/18/2024 Pain in right toe(s) (ICD-10 - M79.674) 05/18/2024 Pain in left toe(s) (ICD-10 - M79.675) 08/28/2024 Pain in left toe(s) (ICD-10 - M79.675) 11/27/2024 Pain in left toe(s) (ICD-10 - M79.675) 11/27/2024 Ataxic cerebral palsy (ICD-10 - G80.4) 08/28/2024 Ataxic cerebral palsy (ICD-10 - G80.4) 05/18/2024 Ataxic cerebral palsy (ICD-10 - G80.4) 05/18/2024 Pain in right toe(s) (ICD-10 - M79.674) 08/28/2024 Pain in right toe(s) (ICD-10 - M79.674) 05/18/2024 Skin ulcer of toe of left foot, limited to breakdown of skin (ICD-10 - L97.521) Patient Educated with: WOUND CARE INSTRUCTIONS.p df (WOUND CARE INSTRUCTIONS.p df) 05/18/2024 Other 08/28/2024 Other Plan Of Treatment Pending Test Test Name Order Date X ray : Foot, left 3V 11/02/2011 24582-GODJUFJ NAIL, 6 OR MORE 01/21/2012 77725-NIVRHWD NAIL, 6 OR MORE 04/27/2012 63357-PTNLAVR NAIL, 6 OR MORE 08/04/2012 68802-YANCEEG NAIL, 6 OR MORE 11/10/2012 42919-GEXNFCX NAIL, 6 OR MORE 02/02/2013 54969-WULCWJM NAIL, 6 OR MORE 02/28/2019 60372-UFABYDQ NAIL, 6 OR MORE 06/01/2019 80287-LXSTGII NAIL, 6 OR MORE 09/28/2019 01054-QVYIMCY NAIL, 6 OR MORE 07/31/2020 50430-EUXAWZH NAIL, 6 OR MORE 10/31/2020 05357-GCTRFWX NAIL, 6 OR MORE 04/28/2021 44227-JHGKEGY NAIL, 6 OR MORE 08/11/2021 24124-KLCSGBT NAIL, 6 OR MORE 12/19/2021 73730-MBVWRPN NAIL, 6 OR MORE 03/19/2022 76359-AIDGTDL NAIL, 6 OR MORE 06/22/2022 60468-VSBDKWN NAIL, 6 OR MORE 10/08/2022 45518-CQKXBOA NAIL, 6 OR MORE 01/25/2023 57942-HLWAFVA NAIL, 6 OR MORE 05/17/2023 58786-ISEOPSL NAIL, 6 OR MORE 10/21/2023 37665-PFTOWXP NAIL, 6 OR MORE 05/04/2013 26160-OTJMJFD NAIL, 6 OR MORE 07/24/2013 17562-KBYQVSY NAIL, 6 OR MORE 01/04/2014 86159-VARFIFR NAIL, 6 OR MORE 04/11/2014 50925-HRMACOM NAIL, 6 OR MORE 07/05/2014 25199-BZTJPWP NAIL, 6 OR MORE 11/14/2014 48465-SQISSKN NAIL, 6 OR MORE 02/11/2015 60419-CYQOZPB NAIL, 6 OR MORE 05/20/2015 10249-YODXANV NAIL, 6 OR MORE 05/27/2016 28401-DRPLONH NAIL, 6 OR MORE 05/13/2017 19985-CIRPFVF NAIL, 6 OR MORE 08/12/2017 83785-YQMYTJD NAIL, 6 OR MORE 11/11/2017 89498-HNCFFST NAIL, 6 OR MORE 02/10/2018 79231-DUTBXSP NAIL, 6 OR MORE 05/12/2018 45276-JGWVDDM NAIL, 6 OR MORE 08/11/2018 28767-DMQNHIS NAIL, 6 OR MORE 11/10/2018 11264-UYHCJCE NAIL, 6 OR MORE 08/17/2011 24369-VHIETBO NAIL, 6 OR MORE 11/02/2011 62482-CZQGOBQ NAIL, 6 OR MORE 01/27/2024 88450-XYOWFGN NAIL, 6 OR MORE 05/18/2024 27642-NNNUDDH NAIL, 6 OR MORE 08/28/2024 79343-WUVCPJQ NAIL, 6 OR MORE 11/27/2024 15134-Xphkcank Plate 08/11/2021 22085-Lpfvtwac Plate 11/27/2024 19610-Hygqocun Plate 02/28/2019 57871-Ninfibxm Plate 02/11/2015 36097-Xrslxgwo Plate 12/19/2021 44927-Suhmhqgo Plate 03/19/2022 94688-Segdmctm Plate Each Additional 68303- Debride <25 sq cm 02/02/2013 08036- Debride <25 sq cm 05/18/2024 84399-RINV SKIN LESIONS, 2 TO 4 08/28/20 09623-CPMM SKIN LESIONS, 2 TO 4 10/21/19 Next Appt Details Provider Name:Swapna Yi , 03/08/2025 08:00:00 AM, [address] [place], [address], Insurance Providers Payer Name Payer Address Payer Phone Subscriber Number Group Number Insured Name Patient Relationship to Insured Coverage Start Date Coverage End Date [facility] [address] [place] [address] [phone] [id number] Self - patient is the insured Medical (General) History Medical History History ICD Code cerebral palsy hypertension chicken pox asthma CPAP -01/15 Surgical History Surgery Date(Month/Year) foot surgery hip surgery Hospitalization History Reason Date(Month/Year) [facility]; Fell bruised rib 04/2015
== END 2025-03-07 10:06 | disposition home or self-care (01) ==
LOC: HO.HMCHD 09:11
PROVIDERS: PCP Internal Medicine; Visit Provider Physician Assistant
DX: F32.9 Major depressive disorder, single episode, unspecified (principal); I10 Essential (primary) hypertension; E66.01 Morbid (severe) obesity due to excess calories; G47.33 Obstructive sleep apnea (adult) (pediatric)

== ENCOUNTER 2025-03-07 09:47 | Outpatient (REF) | payer BC, SELFPAY ==
[2025-03-07 13:25] LABS: MANUAL DIFF FLAG NO
[2025-03-07 13:45] LABS: Estimated Average Glucose 111 mg/dL; Hemoglobin A1c % 5.5 % (<6.0); Total Hemoglobin (HGBA1C) 3874.9809 umol/L
[2025-03-07 13:49] LABS: Basophils Percent Auto 0.5 % (0-2); Eosinophils Absolute Auto 0.4 X10*3/uL (0.0-0.4); Eosinophils Percent Auto 5.7 % (0-4); Hematocrit 44.9 % (42.0-52.0); Imm Gran Abs Auto 0.03 X10*3/uL (0.00-0.03); Imm Gran Pct Auto 0.5 % (0.0-0.4); Lymphocytes Absolute Auto 1.1 X10*3/uL (1.2-4.9); Lymphocytes Percent Auto 18.4 % (20-40); Mean Corpuscular HGB Conc 33.4 g/dl (31.0-36.0); Mean Corpuscular Hemoglobin 28.6 pg (27.0-33.0); Mean Corpuscular Volume 85.5 fL (80.0-98.0); Mean Platelet Volume 9.3 fL (9.4-12.4); Monocytes Absolute Auto 0.6 X10*3/uL (0.1-1.2); Neutrophils Percent Auto 64.9 % (45-73); Platelet Count 256 X10*3/uL (160-400); Red Blood Count 5.25 X10*6/uL (4.60-5.80); Red Cell Distribution Width 12.9 % (11.0-16.0); White Blood Count 6.1 X10*3/uL (4.8-10.8)
[2025-03-07 14:07] LABS: Alanine Aminotransferase 26 U/L (0-40); Albumin Level 4.5 g/dL (3.5-5.0); Alkaline Phosphatase 63 U/L (39-117); Anion Gap 12 (12-20); Aspartate Amino Transferase 28 U/L (5-37); Bilirubin Direct 0.3 mg/dL (0.0-0.5); Blood Urea Nitrogen 17 mg/dL (9-16); Calcium 9.5 mg/dL (8.4-10.2); Carbon Dioxide 24 mmol/L (22-29); Chloride 108 mmol/L (96-108); Cholesterol 160 mg/dL (<200); Estimated Glomerular Filt Rate > 60; Glucose Random 96 mg/dL (60-115); HDL Cholesterol 44 mg/dL (>40); LDL Cholesterol Calculated 96 mg/dL (<100); Potassium 3.8 mmol/L (3.3-5.1); Sodium 140 mmol/L (135-145); Total Protein 6.8 g/dL (6.5-8.0); Triglycerides 102 mg/dL (<150)
== END 2025-03-07 09:48 | disposition home or self-care (01) ==
LOC: HO.10HDL 09:47
PROVIDERS: Visit Provider Physician Assistant
DX: I10 Essential (primary) hypertension (principal); E66.9 Obesity, unspecified; G47.33 Obstructive sleep apnea (adult) (pediatric); F32.9 Major depressive disorder, single episode, unspecified
CPT/HCPCS: 36415; 80048; 80061; 80076; 83036; 84443; 85025

== ENCOUNTER 2025-03-19 09:26 | Outpatient (AMB) | payer BC, SELFPAY ==
[2025-03-19 09:35] VITALS: BP 130/82; PULSE 80; O2SAT 96; BMI 43.4
--- NOTE | 2025-03-19 09:35 | A.OFFVIS_ITS ---
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 Required: No Allergies aspirin (ASA) Allergy (Unknown, Verified 03/19/25 09:47) SWELLING Medication List - Last Reconciled 03/19/25 by Pauline Starr MD atenolol 25 mg PO DAILY bupropion HCl XL 150 mg PO DAILY CPAP As directed lorazepam 1 mg PO DAILY PRN losartan 100 mg PO DAILY melatonin 5 mg PO BEDTIME PRN multivitamin (Daily Multi-Vitamin tablet) 1 tab PO DAILY omega 3-jvu-vty-fish oil 60-90-500 mg (Fish Oil) 1 cap PO DAILY Do you need a note to return to daycare/school/sports/work: No HPI HPI Obstructive sleep apnea: Details: Jac, 54 years old gentleman a case of cerebral palsy with impaired gait, has morbid obesity with current BMI 43.4. Is a case of obstructive sleep apnea. He uses CPAP very regularly every night. With nasal mask and pressure setting of 6-16 cm. Here for follow-up after 6 months . Uses CPAP with a nasal mask very regularly, and has no issues with the mask or CPAP device. Has put on about 6 lb of weight and is going to see the dietitian in the near future. [facility] Medical History Colon polyps Hypertension Major depressive disorder Asthma Anxiety and depression Nocturnal hypoxemia due to obesity Obesity, morbid Excessive daytime sleepiness Cerebral palsy [place] (obstructive sleep apnea) Obesity (BMI 35.0-39.9 without comorbidity) Surgical History History of colonoscopy (~05/01/22) History of hip surgery Hx of foot surgery History of surgery Social History Patient Tobacco Use Status: Former Tobacco user Review of Systems Const All systems reviewed & are unremarkable except as noted in HPI and below Reports snoring ENT Reports nasal congestion (mild intermittent ) and Reports disequilibrium Card Denies chest pain and Denies leg edema Resp Reports cough (mild intermittent ), Reports excessive phlegm production (in AMs .) and Reports snoring GI Reports heartburn (mild , in AMs ) Musc Reports abnormal gait (weak lower extermities sec. to cereberal palsy ) and Reports atrophy Neuro Reports abnormal gait (weak lower extermities sec. to cereberal palsy ) and Reports disequilibrium Psych Reports no additional complaints Physical Exam Vital Signs: Last Vital Signs Pulse 80 03/19/25 09:35 BP 130/82 03/19/25 09:35 Pulse Ox 96 03/19/25 09:35 Oxygen Delivery Method Room Air 03/19/25 09:35 BMI result Body Mass Index 43.4 No change in weight Const General: healthy appearing (Except for being overweight), comfortable, no acute distress, alert and awake Orientation/consciousness: patient oriented x3 HEENT Head: Yes normal to inspection General nose exam: No nasal polyps present and No nasal discharge present Face and sinus: Yes sinuses nontender Mouth: oropharynx normal Throat: Yes posterior oropharynx normal Eyes General: appearance normal, both eyes and all related structures Neck Neck: Yes normal visual inspection, Yes no lymphadenopathy, Yes trachea midline and Yes no JVD Thyroid: Thyroid normal Chest Chest palpation & inspection: normal inspection of the chest, normal palpation of entire chest wall and no tenderness Resp Effort & Inspection: normal respiratory effort Auscultation: clear to auscultation bilaterally, no crackles and no wheezes Percussion: percussion normal Cardio Palpation: normal PMI Rate: regular rate Rhythm: regular rhythm Heart sounds: no gallops and no murmurs Peripheral pulses: Peripheral pulses 2+ throughout GI Palpation (GI): Soft to palpation, nontender, No hepatosplenomegaly present and no masses Auscultation: normal bowel sounds Back/Spine/Pelvis Thoracic/Lumbar Spine: thoracic and lumbar spine normal to inspection and thoraco-lumbar ROM limited Skin General skin exam: no rashes or lesions noted Neuro General: patient oriented x3, No gait normal (Weak and spastic, uses a crutch on the right side.) and no focal motor deficits Cranial nerves: Yes CN's II-XII intact bilaterally Extrem General: Yes normal to inspection, Yes no clubbing, cyanosis or edema and Yes no calf tenderness Psych Appearance: grossly normal and well kempt Speech and movement: Normal speech and movement present Results Reviewed Results Reviewed: Compliance report for the last 30 nights shows that he uses CPAP 100% of the nights. Average use it per night. 6 hours 1 minute Pressure used is mostly. 11-13 cm. No significant air leak Residual AHI 0.9 Assessment & Plan Assessment & Plan (1) Obesity, morbid: Comment: THIS IS A CHRONIC PROBLEM IN HIS CASE, ANY SIGNIFICANT WEIGHT REDUCTION IS NOT EXPECTED, BECAUSE HE REALLY CANNOT DO MUCH EXERCISE. DUE TO CEREBRAL PALSY AND IMPAIRED GAIT . HE DOES HAVE APPOINTMENT WITH THE DIETITIAN TO DISCUSS ABOUT THE FOOD. Code(s): E66.01 - Morbid (severe) obesity due to excess calories Category: Medical Plan: I ENCOURAGED HIM TO SEE THE DIETITIAN AND THEN TRY TO CUT DOWN THE PORTIONS OF HIS MEALS. (2) [place] (obstructive sleep apnea): Comment: HE HAS MILD TO MODERATE DEGREE OF OBSTRUCTIVE SLEEP APNEA, ASSOCIATED WITH MILD NOCTURNAL HYPOXEMIA. PATIENT HAS BEEN USING CPAP REGULARLY WITH 100% COMPLIANCE, HE IS BENEFITING AND REPORTS THAT HE HAS GOOD QUALITY OF SLEEP. Code(s): G47.33 - Obstructive sleep apnea (adult) (pediatric) Category: Medical Plan: COMMENDED FOR GOOD COMPLIANCE AND ADVISED TO CONTINUE USING THE CPAP REGULARLY EVERY NIGHT. USES NASAL MASK, WITH PRESSURE SETTING OF 6-20 CM. Coding Level of Care Code Est Pt Level 3 (99024) Diagnoses Obesity, morbid E66.01 [place] (obstructive sleep apnea) G47.33
== END 2025-03-19 09:48 | disposition home or self-care (01) ==
LOC: HO.HPS 09:27
PROVIDERS: PCP Internal Medicine; Visit Provider Internal Medicine
DX: E66.01 Morbid (severe) obesity due to excess calories (principal); G47.33 Obstructive sleep apnea (adult) (pediatric)
CPT/HCPCS: 99213

== ENCOUNTER 2025-04-03 20:47 | Emergency (ER) | payer BC, SELFPAY ==
--- NOTE | ~2025-04-03 | XR_ITS ---
CLINICAL HISTORY: fall 4 view left elbow Comparison: None provided Findings: No acute displaced fractures or dislocations. Mild-moderate osteoarthritis with small effusion. No radiopaque retained foreign body. IMPRESSION: 1. No acute fracture or dislocation. 2. Mild-moderate osteoarthritis. This document has been electronically signed by: Alireza Odonnell MD on 04/04/2025 00:01:15
[2025-04-03 21:15] VITALS: BP 124/75; PULSE 90; RESP 16; TEMP 37.6; O2SAT 94; BMI 46.2
--- NOTE | 2025-04-04 00:32 | ED_ITS ---
HPI - Wound/Laceration General Chief Complaint: Wound/Laceration Stated Complaint: Fell & cut rt elbow Time Seen by Provider: 04/04/25 00:31 Source: patient Mode of arrival: ambulatory Limitations: no limitations History of Present Illness ED Provider: Dr. Alecia Nielsen HPI narrative: 54-year-old male with history of hypertension, sleep apnea presenting after a mechanical fall that occurred at home immediately prior to arrival. Patient reports that he fell onto his left elbow. Did not hit his head or lose consciousness. He does not take blood thinners. Only wound is to his left e lbow. Had been feeling well prior to the injury. Bleeding is controlled with pressure. Denies numbness/tingling/weakness in the hand. No fever, nausea or vomiting. Related Data Home Medications ?Medication ?Instructions ?Recorded ?Confirmed melatonin 5 mg tablet 5 mg PO BEDTIME PRN 12/30/22 03/19/25 multivitamin (Daily Multi-Vitamin 1 tab PO DAILY 12/3003/19/25 tablet) lorazepam 1 mg tablet 1 mg PO DAILY PRN 07/28/23 0 03/19/25 CPAP 03/07/25 03/19/25 omega 9-lbu-fsj-fish oil 60 mg-90 1 cap PO DAILY 03/1903/19/25 mg-500 mg capsule (Fish Oil) Previous Rx's ?Medication ?Instructions ?Recorded atenolol 25 mg tablet 25 mg PO DAILY #90 tabs 01/19 losartan 100 mg tablet 100 mg PO DAILY #90 tabs 01/19 bupropion HCl 150 mg 24 hr tablet, 150 mg PO DAILY #90 tabs 03/07/25 extended release Allergies Allergy/AdvReac Type Severity Reaction Status Date / Time aspirin (ASA) Allergy Unknown SWELLING Verified 04/03/25 21:21 Review of Systems Review of Systems: Yes all other systems are reviewed and are negative (As per HPI) [facility] Past Medical History Attestation statement: The following information was validated with the patient. Medical History Colon polyps Hypertension Major depressive disorder Asthma Anxiety and depression Nocturnal hypoxemia due to obesity Obesity, morbid Excessive daytime sleepiness Cerebral palsy [place] (obstructive sleep apnea) Obesity (BMI 35.0-39.9 without comorbidity) Surgical History History of colonoscopy (~05/01/22) History of hip surgery Hx of foot surgery History of surgery Social History Social History Patient Tobacco Use Status: Former Tobacco user Advance Directives: No Advance Directives Information Provided: Yes Physical Exam Vital Signs: Vital Signs: Last Vital Signs Temp 97.1 F 04/04/25 00:53 Pulse 79 04/04/25 00:53 Resp 18 04/04/25 00:53 BP 135/84 04/04/25 00:53 Pulse Ox 95 04/04/25 00:53 O2 Del Method Room Air 04/04/25 00:53 BMI result Body Mass Index 46.2 GENERAL: Well-Appearing, conversant, no acute distress. SKIN: Normal skin color for ethnicity, no rashes noted, laceration overlying the dorsal aspect of the left elbow approximately 2 cm in length, deep structures intact, bleeding controlled. HEENT: Normocephalic, atraumatic, no stridor, EOMI. CHEST: Heart regular rate and rhythm, no murmurs, symmetric chest rise and fall. PULMONARY: Clear to auscultation bilaterally, no labored breathing, no wheezes/rhales/rhonchi. ABDOMINAL: Soft, nondistended, nontender, positive bowel sounds in all quadrants. : Deferred. MUSCULOSKELETAL: Normal tone, full range of motion, no deformities, no peripheral edema, left elbow contusion associated with laceration, neurovascularly intact distally, full function of the radial, median and ulnar nerves of the left hand. NEURO: Alert and oriented x3, CN II through XII intact, equal strength and sensation bilateral upper and lower extremities, no focal neurologic deficits. PSYCHIATRIC: Normal affect, fluid speech, good eye contact and appropriate demeanor. Medications Administered Discontinued Medications Generic Name Dose Route Start Last Admin Trade Name Freq PRN Reason Stop Dose Admin Lidocaine HCl 10 ml 04/04/25 00:49 04/04/25 01:03 Lidocaine Hcl 1 % 20 Ml Vial INFILTRATI 04/04/25 00:50 10 ml ONCE ONE Administration Lidocaine/Epinephrine 10 ml 04/04/25 00:32 04/04/25 01:02 Lidocaine Hcl 1%/Epi 1:100,000 20 Ml Vial INFILTRATI 04/04/25 00:33 Not Given ONCE ONE Medical Decision Making Medical Decision Making MDM Narrative: Patient presents today with chief complaint of laceration. Differential diagnosis would include foreign body, tendon or ligament injury, open fracture, wound infection, among many others. Laceration was thoroughly cleansed in the emergency department and probed for any foreign bodies. There were none. There is no evidence of tendon or ligament injury at this time based on physical exam. There is a normal neurovascular examination before and after repair. Wound care was discussed with patient as we ll as a specific time to have latonia or sutures removed if necessary. Signs infection were also discussed and the patient was urged to come immediately back to the emergency department for reevaluation if they do occur. Differential Diagnosis Differential Diagnoses: The differential diagnosis associated with the presentation includes (As above) Independent Interpretation I performed an independent interpretation of an: Plain X-Ray Interpretation: No fracture or foreign body noted in the left elbow Radiology Impression Discussion of test interpretation with radiology: I have reviewed the radiologist's reading. Chronic Conditions Patient?s care impacted by: Hypertension Procedures Laceration Laceration 1: Site: upper extremity (elbow) Side (If applicable): left Size (cm): 2 Description: linear Depth: simple, single layer Local Anesthetic: lidocaine 1% Amount of anesthesia used (mL): 5 Pre-repair: wound explored, irrigated extensively and deep structures intact Skin layer closed with: nylon Size (cm): 4-0 Number of sutures: 3 Technique: simple, interrupted Discharge Plan Discharge Clinical Impression: Laceration of left elbow, Contusion of left elbow, initial encounter Patient Disposition: Home, Self-Care Instructions: Laceration (ED), Contusion in Adults (ED) Additional Instructions: Keep your wound clean and dry for the next 24 hours. After that, you may get the area wet but do not scrub it or use harsh electric distribution checker on the area. Have your sutures removed in 7-10 days by either your primary care doctor, urgent care or this hospital. If you notice any redness tracking away from your wound, pus drainage from the wound, high fevers, he should return to the hospital immed iately. Call 911 with any medical emergency. Prescriptions: No Action atenolol 25 mg tablet 25 mg PO DAILY Qty: 90 1RF losartan 100 mg tablet 100 mg PO DAILY Qty: 90 3RF multivitamin [Daily Multi-Vitamin] Tablet 1 tab PO DAILY melatonin 5 mg tablet 5 mg PO BEDTIME PRN Rx Instructions: 1-2 at bedtime lorazepam 1 mg tablet 1 mg PO DAILY PRN (DME) CPAP Device See Rx Instructions .Route Rx Instructions: As directed bupropion HCl 150 mg tablet extended release 24 hr 150 mg PO DAILY Qty: 90 1RF omega 8-yfi-sdc-fish oil [Fish Oil] 60-90-500 mg capsule 1 cap PO DAILY Print Language: [place]
[2025-04-04 00:53] VITALS: BP 135/84; PULSE 79; RESP 18; TEMP 36.2; O2SAT 95
[2025-04-04] MEDS: Lidocaine HCl 1 % 20 ML VIAL 10 ML INFILTRATI (01:03)
[2025-04-04 01:44] VITALS: BP 135/84; PULSE 79; RESP 18; TEMP 36.2; O2SAT 95
== END 2025-04-04 01:44 | disposition home or self-care (01) ==
PROVIDERS: Emergency Provider Emergency Medicine
DX: S51.012A Laceration without foreign body of left elbow, initial encounter (principal); S50.02XA Contusion of left elbow, initial encounter; M25.522 Pain in left elbow; X58.XXXA Exposure to other specified factors, initial encounter; Y93.9 Activity, unspecified; Y92.9 Unspecified place or not applicable; Y99.8 Other external cause status; Z79.899 Other long term (current) drug therapy; Z87.891 Personal history of nicotine dependence
CPT/HCPCS: 12001; 73080; 99283; 99284; J2003

== ENCOUNTER → 2025-04-03 22:34 | Outpatient (BNV) | payer BC, SELFPAY | PROVIDERS: Emergency Provider Emergency Medicine; Visit Provider Radiology Neuroradiology | DX: M19.022 Primary osteoarthritis, left elbow (principal) | CPT/HCPCS: 73080 ==

== ENCOUNTER 2025-04-13 10:22 | Outpatient (AMB) | payer BC, SELFPAY ==
--- NOTE | 2025-04-13 10:29 | MHC.PC.OV ---
Vital Signs 04/13/25 10:36 Height 5 ft 5 in Weight 127.459 kg BMI 46.8 BP 140/86 H Blood Pressure Location Rt brachial Position Sitting Respiration 17 Pulse 104 H Pulse Source Pulse Oximeter Temp 97.5 F Temp Source Temporal Artery Scan Pulse Oximetry (%) 95 Oxygen Delivery Method Room Air Intake Visit Reasons: ED follow up, Stitches to be out Corn Press Operator Required: No Accompanied by: Self / Same As Patient Allergies aspirin (ASA) Allergy (Unknown, Verified 04/13/25 10:29) SWELLING Tobacco use date assessed: 04/13/25 HPI HPI Comments History of Present Illness Details 54-year-old male with history of hypertension, major depressive disorder, cerebral palsy, anxiety, obesity, obstructive sleep apnea presents to the office today for post ER evaluation. Patient had a mechanical fall on 04/04 and fell onto his right elbow. No head strike and not on any blood thinners. He denies any prodrome such as lightheadedness, palpitations, vision changes, headaches, shortness of breath, chest pain. Bleeding controlled with pressure. In the ED, 3 simple interrupted sutures were placed. He presents today for suture removal. Hypertension-initially uncontrolled 140/86, recheck 136/80. Continues on losartan 100 mg daily and atenolol 25 mg daily. ROS: General: No fevers, malaise, unintentional weight loss Cardiovascular: No chest pain, palpitations, or leg edema Respiratory: No shortness of breath, wheezing, cough MSK: See HPI Neuro: No headaches, weakness, paresthesias Skin: See HPI EXAM: Constitutional - Awake and Alert, No apparent distress Eyes - PERRL Cardiovascular - S1S2, RRR, No edema Respiratory - Normal lung expansion, Normal respiratory effort, No respiratory distress, CTA bilaterally Extremities - no calf tenderness bilaterally, no swelling Skin - Warm/Dry. Healing 4cm lacertion of the left olecranon with fluid pocket over the olecranon without any erythema, warmth. No drainage. No dehiscence Neurological - Alert & oriented x3. Sensation intact PFS Medical History Colon polyps Hypertension Major depressive disorder Asthma Anxiety and depression Nocturnal hypoxemia due to obesity Obesity, morbid Excessive daytime sleepiness Cerebral palsy ONDINA (obstructive sleep apnea) Obesity (BMI 35.0-39.9 without comorbidity) Surgical History History of colonoscopy (~05/01/22) History of hip surgery Hx of foot surgery History of surgery Social History Patient Tobacco Use Status: Never used Tobacco e-Cigarette/Vaping Use: Never Used Questionnaire Thrive Questionnaire Date Thrive assessed: 03/07/25 AUDIT C Alcohol Use Questionnaire (AUDIT-C) 1. How often do you have a drink containing alcohol?: Monthly or less 2. How many drinks containing alcohol do you have on a typical day when you are drinking?: 1 or 2 Total Score: 1 LAURI-7 AMB Questionnaire LAURI-7 Date LAURI - 7 assessed: 03/07/25 Source: Developed by Drs. Matias Chiang, Sangeeta Parekh, Jose Martinez and colleagues, with an educational joan from [employer]. Physical exam (Primary Care) Vital Signs: Last Vital Signs Temp 97.5 F 04/13/25 10:36 Pulse 104 H 04/13/25 10:36 Resp 17 04/13/25 10:36 BP 140/86 H 04/13/25 10:36 Pulse Ox 95 04/13/25 10:36 Oxygen Delivery Method Room Air 04/13/25 10:36 BMI result Body Mass Index 46.8 Tobacco/Smoking Status: Tobacco use Status Tobacco use date assessed 04/13/25 04/13/25 10:30 Patient Tobacco Use Status Never used Tobacco 04/13/25 10:39 e-Cigarette/Vaping Use Never Used 04/13/25 10:30 Thrive Assessment: Date of Thrive Assessment Date Thrive assessed 03/07/25 04/13/25 10:30 Coding Level of Care Code Est Pt Level 4 (20759) Diagnoses Laceration of left elbow S51.012A Hypertension I10 Olecranon bursitis M70.20 Assessment & Plan Assessment & Plan (1) Laceration of left elbow: Code(s): S51.012A - Laceration without foreign body of left elbow, initial encounter Category: Medical Plan: 3 intact simple interrupted sutures removed from the left olecranon. Wound is healing well without any evidence of infection or dehiscence of the wound. Tolerated procedure well (2) Hypertension: Code(s): I10 - Essential (primary) hypertension Category: Medical Plan: Controlled on recheck. Continue losartan 100 mg daily atenolol 25 mg daily. (3) Olecranon bursitis: Code(s): M70.20 - Olecranon bursitis, unspecified elbow Category: Medical Plan: Mild at this time. Recommend NSAIDs and ice. Should this not improve or worsen, can refer to Orthopedics for aspiration Plan Your notes reviewed including provider note and x-ray of the elbow. Follow-up as scheduled.
[2025-04-13 10:36] VITALS: BP 140/86; PULSE 104; RESP 17; TEMP 36.4; O2SAT 95; BMI 46.8
--- OUTSIDE RECORDS SUMMARY | 2025-04-13 10:45 | XMS_ITS | Patient Health Record ---
Author Organization [facility] Address [address] [place] [address] Care Team Providers Care Contact Lens Fitter Name Role Phone AmesKierra Primary Care Provider Unavailabl e KdSwapna Unavailable [phone] Allergies Allergen (clinical drug ingredient) Drug/Non Drug [...] Huang Referring Provider Last Name Mercedes Referred [facility] Referred Provider Swapna Yi Referred Address [address] [place], [place],[address], Referred Provider Specialty Podiatry Referral Priority Routine Medications Medication SIG (Take, Route, Frequency, Duration) Notes Start Date End Date Status Escitalopram Oxalate 5 MG 1 tablet Orall y Once a day Not-Taking Losartan Potassium 25 MG 1 tablet Orally Once a day; Duration: 30 day(s) Not-Taking traZODone HCl Not-Ta tadeo Valsartan 160 MG 1 tablet Orally Once a day; Duration: 30 day(s) Not-Taking LORazepam 1 MG Orally PRN Activ e zzzCompression Stockings 20-30mm Hg . . .; Duration: . Active Wellbutrin XL 450 mg 1 tablet every morn ing Orally Once a day Active Atenolol 25 MG TAKE 1 TABLET BY OSEAS TH EVERY DAY Oral; Duration: 90 Active Melatonin PRN Active Losartan Potassium 25 MG as directed Active Ciclopirox Olamine 0.77% external Apply to effected areas twice a day; Duration: 30 days 05/27/2016 Wilmar kendrick Immunizations Vaccine Route Administration Date Status Comme [facility] COVID-19 Moderna Vaccine Unknown 12/15/2020 Administered First Dose: 10/29 10/17 Influenza Unknown 07/28/2024 Administered Social History Tobacco Use: Social History Observation [...] Problem Status W/U Status Risk Notes Problem Ataxic cerebral palsy (301691425) 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 Vital Signs Blood pressure diastolic 80 mm Hg 03/08/2025 Height 5ft8in in 03/08/2025 Blood pressure systolic 135 mm Hg 03/08/2025 Weight 270 lbs 03/08/2025 BMI 41.05 kg/m2 03/08/2025 Procedures Procedure Date Ordered Date Performed Result Body Sit e 70638-SQPTZCM NAIL, 6 OR MORE 08/28/2024 N/A 57558-KDQM SKIN LESIONS, 2 TO 4 08/28/2024 N/A 99835-WRSVDTB NAIL, 6 OR MORE 03/08/2025 N/A 25800-CETK SKIN LESIONS, 2 TO 4 03/08/2025 N/A 47210-Bfuwbrfi Plate 11/27/2024 N/A 71431-RYTWVNU NAIL, 6 OR MORE 11/27/2024 N/A 50617- Debride <25 sq cm 05/18/2024 N/A 71423-BYBSSJG NAIL, 6 OR MORE 05/18/2024 N/A Encounters Encounter Location Date Provider Diagnosis [facility] [address] [address] 05/18/2024 Swapna Black Tinea unguium B35.1 ; Hammertoe of left foot M20.42 ; Pain in right toe(s) M79.674 ; Pain in left toe(s) M79.675 ; 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 ; Pain in right toe(s) M79.674 and Skin ulcer of toe of left foot, limited to breakdown of skin L97.[address] [facility] [address] 08/28/2024 Swapna Black Tinea unguium B35.1 ; Hammertoe of left foot M20.42 ; Pain in right toe(s) M79.674 ; Pain in left toe(s) M79.675 ; 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 and Pain in right toe(s) M79.[address] [address] 11/27/2024 Swapna Black Tinea unguium B35.1 ; Ingrown nail L60.0 ; Pain in right toe(s) M79.674 ; Pain in left toe(s) M79.675 and 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 [address] 03/08/2025 Swapna Black Tinea unguium B35.1 ; Pain in right toe(s) M79.674 ; [...] B35.1) 11/27/2024 Ingrown nail (ICD-10 - L60.0) 03/08/2025 Tinea unguium (ICD-10 - B35.1) 03/08/2025 Pain in right toe(s) (ICD-10 - M79.674) 03/08/2025 Pain in left toe(s) (ICD-10 - M79.675) 11/27/2024 Pain in right toe(s) (ICD-10 - M79.674) 08/28/2024 Pain in right toe(s) (ICD-10 - M79.674) 05/18/2024 Pain in right toe(s) (ICD-10 - M79.674) 05/18/2024 Pain in left toe(s) (ICD-10 - M79.675) 08/28/2024 Pain in left toe(s) (ICD-10 - M79.675) 11/27/2024 Pain in left toe(s) (ICD-10 - M79.675) 03/08/2025 Ataxic cerebral palsy (ICD-10 - G80.4) 11/27/2024 Ataxic cerebral palsy (ICD-10 - G80.4) [...] X ray : Foot, left 3V 11/02/2011 76097-RBMTFEM NAIL, 6 OR MORE 01/21/2012 55017-HZMXDVA NAIL, 6 OR MORE 04/27/2012 91306-IWYWQYV NAIL, 6 OR MORE 08/04/2012 48672-WPSXAKD NAIL, 6 OR MORE 11/10/2012 28974-MTADPEK NAIL, 6 OR MORE 02/02/2013 68039-DEYARQO NAIL, 6 OR MORE 02/28/2019 09093-VJKQDPR NAIL, 6 OR MORE 06/01/2019 74583-BVLWODX NAIL, 6 OR MORE 09/28/2019 58353-KULBYHG NAIL, 6 OR MORE 07/31/2020 48463-VWBISPO NAIL, 6 OR MORE 10/31/2020 11082-BGCHWYB NAIL, 6 OR MORE 04/28/2021 91043-RKEFVHU NAIL, 6 OR MORE 08/11/2021 86807-FKWPJDN NAIL, 6 OR MORE 12/19/2021 62803-GIXUJRF NAIL, 6 OR MORE 03/19/2022 45051-OWFLCFV NAIL, 6 OR MORE 06/22/2022 24162-FTAJQRI NAIL, 6 OR MORE 10/08/2022 01455-QCOQUHX NAIL, 6 OR MORE 01/25/2023 28464-LTCCYKH NAIL, 6 OR MORE 05/17/2023 15292-CPHQYQJ NAIL, 6 OR MORE 10/21/2023 44518-KLGLIWL NAIL, 6 OR MORE 05/04/2013 60002-BXKHADT NAIL, 6 OR MORE 07/24/2013 00282-XDGCXKF NAIL, 6 OR MORE 01/04/2014 02352-REJSSVH NAIL, 6 OR MORE 04/11/2014 95278-OAAIOBY NAIL, 6 OR MORE 07/05/2014 54539-BEPIKPA NAIL, 6 OR MORE 11/14/2014 00615-POXVICS NAIL, 6 OR MORE 02/11/2015 86337-KYBXSTW NAIL, 6 OR MORE 05/20/2015 39182-QSWLKRF NAIL, 6 OR MORE 05/27/2016 53063-YDDYMQY NAIL, 6 OR MORE 05/13/2017 51983-BDTGMKG NAIL, 6 OR MORE 08/12/2017 80882-BXUAYJA NAIL, 6 OR MORE 11/11/2017 95083-FEYLPDT NAIL, 6 OR MORE 02/10/2018 46680-KRUMXEK NAIL, 6 OR MORE 05/12/2018 00031-LRKCANN NAIL, 6 OR MORE 08/11/2018 74320-FTDOVNQ NAIL, 6 OR MORE 11/10/2018 31675-PEHFEQO NAIL, 6 OR MORE 08/17/2011 15594-TOKUCPO NAIL, 6 OR MORE 11/02/2011 47410-OZMXDCB NAIL, 6 OR MORE 01/27/2024 74377-DLMCISQ NAIL, 6 OR MORE 05/18/2024 49077-NWPPERY NAIL, 6 OR MORE 08/28/2024 04465-YAILAYX NAIL, 6 OR MORE 11/27/2024 58378-FECYHJX NAIL, 6 OR MORE 03/08/2025 61417-Vfomzpos Plate 08/11/2021 34324-Bvtqdljs Plate 11/27/2024 41679-Lsrenrry Plate 02/28/2019 94018-Cnyvqigy Plate 02/11/2015 74098-Felzogen Plate 12/19/2021 35107-Utsdxhyj Plate 03/19/2022 67400-Hwljneqm Plate Each Additional 57653- Debride <25 sq cm 02/02/2013 94885- Debride <25 sq cm 05/18/2024 99248-QJRD SKIN LESIONS, 2 TO 4 08/28/20 29538-TGBD SKIN LESIONS, 2 TO 4 03/08/20 74399-LHXQ SKIN LESIONS, 2 TO 4 10/21/19 Next Appt Details Provider Name:Swapna Yi , 06/11/2025 08:00:00 AM, [address] [place], [address], Insurance Providers Payer Name Payer Address Payer Phone Subscriber Number Group Number Insured Name Patient Relationship to Insured Coverage Start Date Coverage End Date [facility] [address] [place] [address] [id number] Jca Archer Self - patient is the insured Medical (General) History Medical History History ICD Code cerebral palsy hypertension chicken pox asthma CPAP -01/15 Other hammer toe(s) (acquired), right fo ot M20.41 Primary osteoarthritis, left ankle and f oot M19.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
--- OUTSIDE RECORDS SUMMARY | 2025-04-13 10:45 | XMS_ITS | Patient Health Record ---
Author Organization [facility] Address [address] [place] [address] Care Team Providers Care Weight Control Engineer Name Role Phone Mercedes (RETIRED) Huang PEREZ Primary Care Provide Alireza Padilla Jr Unavailable Allergies Allergen (clinical drug ingredient) Drug/Non Drug Allergy documented on EMR Reaction Allergy Type Onset Date Status aspirin Aspirin Unknown Drug Allergy Active Reason For Referral No Information Medications Medication SIG (Take, Route, Frequency, Duration) Notes Start Date End Date Status Losartan Potassium 100 MG Oral for 60 Active traZODone HCl 50 MG Oral for 30 Active Atenolol 25 MG Oral for 30 Act corwin buPROPion HCl ER (XL) 450 MG 1 tablet in the morning Orally Once a day Active MiraLax (colon prep) 17 GM/SCOOP mixed with Gatorade or Crystal Light Orally begin at 5:00 p.m. the day before the procedure for 1 day 03/25/2022 Active Immunizations Vaccine Route Administration Date Status Comme nts Influenza Unknown 06/17/2021 Administered Social History Tobacco Use: Social History Observation Description Date Details (start date - stop date) Never Smoker NA - NA Tobacco Use/Smoking Question Answer Notes Patient is a nonsmoker Alcohol Screen Question Answer Notes Did you have a drink contain ing alcohol in the past year? Yes How often did you have a dri nk containing alcohol in the past year? 2 to 4 times a month (2 points) How many drinks did you have on a typical day when you were drinking in the past year? 3 or 4 drinks (1 point) Points 3 Interpretation Negative Problems Problem Type SNOMED Code ICD Code Onset Dates Problem Status W/U Status Risk Notes Problem 007932129 Colon cancer screening (Z12.11) Active confirmed Problem 698008746 Encounter for other preprocedural examination (Z01.818) Active confirmed Plan Of Treatment Future Test Test Name Order Date COLONOSCOPY 03/25/2022 Insurance Providers Payer Name Payer Address Payer Phone Subscriber Number Group Number Insured Name Patient Relationship to Insured Coverage Start Date Coverage End Date [facility] [address] [place] [address] [id number] RUMA MCKEON Self - patient is the insured Medical (General) History Medical History History ICD Code ONDINA/CPAP asthma hypertension Anxiety/depression Surgical History Surgery Date(Month/Year) MULTIPLE SURGERIES DUE TO CP REPLACED CARTILEDGE AND PINS IN BOTH FEET/HEEL CORD LENTHENED /RIGHT HIP ROTATED 2009,2014
== END 2025-04-13 11:55 | disposition home or self-care (01) ==
LOC: HO.HMCHD 10:23
PROVIDERS: Visit Provider Physician Assistant
DX: S51.012A Laceration without foreign body of left elbow, initial encounter (principal); I10 Essential (primary) hypertension; M70.21 Olecranon bursitis, right elbow

== ENCOUNTER 2025-05-01 10:00 | Outpatient (AMB) | payer BC, SELFPAY ==
--- NOTE | 2025-05-01 10:15 | A.OFFVIS_ITS ---
VS Expanded 05/01/25 21:05 Height 5 ft 5 in Weight 281 lb BMI 46.8 Intake Visit Reasons: Morbid (severe) obesity due to excess calories Allergies aspirin (ASA) Allergy (Unknown, Verified 04/13/25 10:29) SWELLING Nutrition Presentation Details: Pt presents for MNT for morbid obesity due to excess calories Pt reports having cerebral palsy, currently uses a crutch to walk Pt reports having home made meals 3-4 x per wk ( made by fam member) Reports having no meal routine, meals are already made Urdu food: rice/pork, sugar free ice tea 9pm p.b sandwich, water, empty calorie foods /unhealthy food choices food frequency fish: 2x/month fruit: 0/d vegetables: 3-4 x/wk dairy: 1-2 /d physical activity: walks with support (crutch) etoh: 1-2 month smoking: denies BS Monitoring Most Recent Diabetes Results: Cholesterol, (<200) 160 mg/dL 03/07/25 HDL Cholesterol, (>40) 44 mg/dL 03/07/25 Triglycerides, (<150) 102 mg/dL 03/07/25 Creatinine, (0.5-1.4) 0.85 mg/dL 03/07/25 BUN, (9-16) 17 mg/dL H 03/07/25 Sodium, (135-145) 140 mmol/L 03/07/25 Potassium, (3.3-5.1) 3.8 mmol/L 03/07/25 Chloride, (96-108) 108 mmol/L 03/07/25 Carbon Dioxide, (22-29) 24 mmol/L 03/07/25 Calcium, (8.4-10.2) 9.5 mg/dL 03/07/25 AST, (5-37) 28 U/L 03/07/25 ALT, (0-40) 26 U/L 03/07/25 Total Protein, (6.5-8.0) 6.8 g/dL 03/07/25 Albumin, (3.5-5.0) 4.5 g/dL 03/07/25 QUQ-Bvzpxnf-Rl.Jeor Equation Height: 5 ft 5 in Weight: 281 lb Resting Metabolic Rate: 2054.35 Calculated Activity Level: Sedentary Calories Needed to Maintain Weight: 2465.22 Diagnosis Nutrition problem #1: excessive energy intake and overweight/obesity As related to (etiology) #1: lack of nutrit education and diagnosis [facility] Medical History Colon polyps Hypertension Major depressive disorder Asthma Anxiety and depression Nocturnal hypoxemia due to obesity Obesity, morbid Excessive daytime sleepiness Cerebral palsy ONDINA (obstructive sleep apnea) Obesity (BMI 35.0-39.9 without comorbidity) Surgical History History of colonoscopy (~05/01/22) History of hip surgery Hx of foot surgery History of surgery Social History Patient Tobacco Use Status: Never used Tobacco e-Cigarette/Vaping Use: Never Used Assessment & Plan Assessment & Plan (1) Obesity, morbid: Code(s): E66.01 - Morbid (severe) obesity due to excess calories Category: Medical Plan: Wt: 128 Kg ( 05/21 ) Est kcal needs as per MSJ: 2500 (40% carb, 30% protein/fat) Est fluid needs as per 25-30 ml/d: 3800 Est prot per day as per 1 g/kg bw: 130 Recommend fiber intake : 8-10 g per day and gradually increase to 25-28 g per day for women and 35-38 g for men or as tolerated Recommend sodium intake per day : less than 2300 mg Educated patient on: ( R = reviewed V = verbalizes understanding N/R = needs review N/A = not applicable * Food sources of carbohydrate, adequate serving sizes and its role in various health conditions: R * Differences between complex carbohydrates a simple carbohydrates, role of fiber in diet: R * Lean protein sources of foods: R V NR * Differences between types of fats and role in diet (mono on saturated fat fatty acids, saturated fatty acids, trans fats): R V N/R * Food sources of sodium in salt and healthy modifications for heart health in kidney health: R V R/V * Vitamins and minerals: R V N/R * Healthy plate method concept: R V N/R * Physical activity: Benefits a precaution: R V N/R Patient Instructions: Switch to lower sugar beverages - see list of options lower in sugar Have a bedtime snack consiting of less than 150 caloriess - see list of options Coding Level of Care Code Nutr Indiv Intake (77781) Diagnoses Obesity, morbid E66.01 Time Spent (min) 30
--- OUTSIDE RECORDS SUMMARY | 2025-05-01 10:33 | XMS_ITS | Patient Health Record ---
Author Organization [facility] Address [address] [place] [address] Care Team Providers Care Demurrage Agent Name Role Phone AmesKierra Primary Care Provider Unavailabl e KdSwapna Unavailable [phone] Allergies Allergen (clinical drug ingredient) Drug/Non Drug [...] Huang Referring Provider Last Name Mercedes Referred [facility] Referred Provider Swapna Yi Referred Address [address] [place], [place],[address], Referred Provider Specialty Podiatry Referral Priority Routine [...] twice a day; Duration: 30 days 05/27/2016 Xiomy-Beryl kendrick Immunizations Vaccine Route Administration Date Status Comme nts Influenza Unknown 07/28/2024 Administered COVID-19 Moderna Vaccine Unknown 12/15/2020 Administered First [...] Status Risk Notes Problem Ataxic cerebral palsy (939907307) 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 Vital Signs Blood pressure diastolic 80 mm Hg 03/08/2025 Height 5ft8in in 03/08/2025 Blood pressure systolic 135 mm Hg 03/08/2025 Weight 270 lbs 03/08/2025 BMI 41.05 kg/m2 03/08/2025 Procedures Procedure Date Ordered Date Performed Result Body Sit e 96427-QELYIOE NAIL, 6 OR MORE 05/18/2024 N/A 43220- Debride <25 sq cm 05/18/2024 N/A 04292-XJSIJGP NAIL, 6 OR MORE 08/28/2024 N/A 10263-AKUW SKIN LESIONS, 2 TO 4 08/28/2024 N/A 43026-UBIGCNY NAIL, 6 OR MORE 11/27/2024 N/A 02215-Stebyeen Plate 11/27/2024 N/A 27998-ZXOFREU NAIL, 6 OR MORE 03/08/2025 N/A 97394-MHVE SKIN LESIONS, 2 TO 4 03/08/2025 N/A Encounters Encounter Location Date Provider Diagnosis [facility] [address] [address] 05/18/2024 Swapna Black Tinea unguium B35.1 ; Hammertoe of left foot M20.42 ; Pain in right toe(s) M79.674 ; Pain in left toe(s) M79.675 ; 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 ; Pain in right toe(s) M79.674 and Skin ulcer of toe of left foot, limited to breakdown of skin L97.[address] [facility] [address] 08/28/2024 Swapna Black Tinea unguium B35.1 ; Hammertoe of left foot M20.42 ; Pain in right toe(s) M79.674 ; Pain in left toe(s) M79.675 ; 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 and Pain in right toe(s) M79.[address] [address] 11/27/2024 Swapna Black Tinea unguium B35.1 ; Ingrown nail L60.0 ; Pain in right toe(s) M79.674 ; Pain in left toe(s) M79.675 and 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 [address] 03/08/2025 Swapna Black Tinea unguium B35.1 ; [...] X ray : Foot, left 3V 11/02/2011 75753-JGNRHEB NAIL, 6 OR MORE 01/21/2012 91842-WHHRTCF NAIL, 6 OR MORE 04/27/2012 90016-XDTVHFJ NAIL, 6 OR MORE 08/04/2012 88188-MWGFYQI NAIL, 6 OR MORE 11/10/2012 60805-BNSGEFM NAIL, 6 OR MORE 02/02/2013 90319-PRDYTGY NAIL, 6 OR MORE 02/28/2019 33329-IHTXLHL NAIL, 6 OR MORE 06/01/2019 34128-BEBMFSK NAIL, 6 OR MORE 09/28/2019 01776-JQBOGTD NAIL, 6 OR MORE 07/31/2020 70467-BPYTEPV NAIL, 6 OR MORE 10/31/2020 27373-FSQYBQL NAIL, 6 OR MORE 04/28/2021 05318-CZMVNIQ NAIL, 6 OR MORE 08/11/2021 72059-CAZWWBB NAIL, 6 OR MORE 12/19/2021 96109-FPTHQEW NAIL, 6 OR MORE 03/19/2022 97913-OLVEGZY NAIL, 6 OR MORE 06/22/2022 59548-YWNCZSY NAIL, 6 OR MORE 10/08/2022 89790-LUAYLBJ NAIL, 6 OR MORE 01/25/2023 88119-FSYMQDG NAIL, 6 OR MORE 05/17/2023 16879-WKHDQMC NAIL, 6 OR MORE 10/21/2023 50799-TUVOYBV NAIL, 6 OR MORE 05/04/2013 60521-LACVFST NAIL, 6 OR MORE 07/24/2013 29227-ZWBULHZ NAIL, 6 OR MORE 01/04/2014 30356-ASBGMOX NAIL, 6 OR MORE 04/11/2014 33340-ILSDQZQ NAIL, 6 OR MORE 07/05/2014 56065-XDQIPGQ NAIL, 6 OR MORE 11/14/2014 69251-IQQXAPN NAIL, 6 OR MORE 02/11/2015 49171-UQMDNKX NAIL, 6 OR MORE 05/20/2015 27625-AEZKWDX NAIL, 6 OR MORE 05/27/2016 77647-IZWUETO NAIL, 6 OR MORE 05/13/2017 30764-DOLGJSK NAIL, 6 OR MORE 08/12/2017 73573-YNHWSGT NAIL, 6 OR MORE 11/11/2017 61040-YJKJQTT NAIL, 6 OR MORE 02/10/2018 67885-NUPNUFL NAIL, 6 OR MORE 05/12/2018 53528-RAQJGPC NAIL, 6 OR MORE 08/11/2018 20820-XUUKHDB NAIL, 6 OR MORE 11/10/2018 32400-EEYBKRD NAIL, 6 OR MORE 08/17/2011 15581-XRCKVEB NAIL, 6 OR MORE 11/02/2011 86344-QKEJREX NAIL, 6 OR MORE 01/27/2024 18915-CQQQGWS NAIL, 6 OR MORE 05/18/2024 66222-TGHYQPW NAIL, 6 OR MORE 08/28/2024 74550-TVULYDW NAIL, 6 OR MORE 11/27/2024 86323-EXXSYOY NAIL, 6 OR MORE 03/08/2025 26511-Zocyfnyo Plate 08/11/2021 50721-Dguwwjfp Plate 11/27/2024 37914-Qkohpcfb Plate 02/28/2019 19154-Msgzakin Plate 02/11/2015 18614-Kaixuoti Plate 12/19/2021 76452-Gzceyfgy Plate 03/19/2022 02942-Cdroqckb Plate Each Additional 76031- Debride <25 sq cm 02/02/2013 51164- Debride <25 sq cm 05/18/2024 60949-NHRC SKIN LESIONS, 2 TO 4 08/28/20 71146-ZVBX SKIN LESIONS, 2 TO 4 03/08/20 41122-ZHBM SKIN LESIONS, 2 TO 4 10/21/19 Next Appt Details Provider Name:Swapna Yi , 06/11/2025 08:00:00 AM, [address] [place], [address], Insurance Providers Payer Name Payer Address Payer Phone Subscriber Number Group Number Insured Name Patient Relationship to Insured Coverage Start Date Coverage End Date [facility] [address] [place] [address] [id number] Jac Archer Self - patient is the insured Medical (General) History Medical History History ICD Code cerebral palsy hypertension chicken pox asthma CPAP -01/15 Other hammer toe(s) (acquired), right fo ot M20.41 Primary osteoarthritis, left ankle and f oot M19.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
--- OUTSIDE RECORDS SUMMARY | 2025-05-01 10:33 | XMS_ITS | Patient Health Record ---
Author Organization [facility] Address [address] [place] [address] Care Team Providers Care Tobacco Classer Name Role Phone Mercedes (RETIRED) Huang PEREZ [...] Problem Status W/U Status Risk Notes Problem [id number] Colon cancer screening (Z12.11) Active confirmed Problem [id number] Encounter for other preprocedural examination (Z01.818) Active confirmed Plan Of Treatment Future Test Test Name Order Date COLONOSCOPY 03/25/2022 Insurance Providers Payer Name Payer Address Payer Phone Subscriber Number Group Number Insured Name Patient Relationship to Insured Coverage Start Date Coverage End Date [facility] PROFESSIONAL CLAIMS [address] [place] [address] [id number] [address] MCKEON Self - patient is the insured Medical (General) History Medical History History ICD Code ONDINA/CPAP asthma hypertension Anxiety/depression Surgical History Surgery Date(Month/Year) MULTIPLE SURGERIES DUE TO CP REPLACED CARTILEDGE AND PINS IN BOTH FEET/HEEL CORD LENTHENED /RIGHT HIP ROTATED 2009,2014
[2025-05-01 21:05] VITALS: BMI 46.8
== END 2025-05-01 10:49 | disposition home or self-care (01) ==
LOC: HO.ENCR 10:01
PROVIDERS: PCP Internal Medicine; Visit Provider Dietitian, Registered
DX: E66.01 Morbid (severe) obesity due to excess calories (principal)

== ENCOUNTER → 2025-05-01 10:00 | Outpatient (BNVA) | payer BC, SELFPAY | PROVIDERS: PCP Internal Medicine; Visit Provider Dietitian, Registered | DX: Z71.3 Dietary counseling and surveillance (principal); E66.01 Morbid (severe) obesity due to excess calories | CPT/HCPCS: 97802 ==

== ENCOUNTER 2025-08-27 09:08 | Outpatient (AMB) | payer BC, SELFPAY ==
--- NOTE | 2025-08-27 09:10 | A.OFFVIS_ITS ---
VS Expanded 08/27/25 09:46 Height 5 ft 5 in Weight 283 lb 4 oz BMI 47.1 Intake Visit Reasons: obesity Allergies aspirin (ASA) Allergy (Unknown, Verified 04/13/25 10:29) SWELLING Nutrition Presentation Details: Pt presents for MNT f/u for morbid obesity Pt reports interest in restarting working on diet modifications for weight loss Pt admits to lacking meal planning, increasing calorie intake in the evning and at night , choosing empty calorie foods BS Monitoring Most Recent Diabetes Results: Cholesterol, (<200) 160 mg/dL 03/07/25 HDL Cholesterol, (>40) 44 mg/dL 03/07/25 Triglycerides, (<150) 102 mg/dL 03/07/25 Creatinine, (0.5-1.4) 0.85 mg/dL 03/07/25 BUN, (9-16) 17 mg/dL H 03/07/25 Sodium, (135-145) 140 mmol/L 03/07/25 Potassium, (3.3-5.1) 3.8 mmol/L 03/07/25 Chloride, (96-108) 108 mmol/L 03/07/25 Carbon Dioxide, (22-29) 24 mmol/L 03/07/25 Calcium, (8.4-10.2) 9.5 mg/dL 03/07/25 AST, (5-37) 28 U/L 03/07/25 ALT, (0-40) 26 U/L 03/07/25 Total Protein, (6.5-8.0) 6.8 g/dL 03/07/25 Albumin, (3.5-5.0) 4.5 g/dL 03/07/25 [facility] Medical History Colon polyps Hypertension Major depressive disorder Asthma Anxiety and depression Nocturnal hypoxemia due to obesity Obesity, morbid Excessive daytime sleepiness Cerebral palsy ONDINA (obstructive sleep apnea) Obesity (BMI 35.0-39.9 without comorbidity) Surgical History History of colonoscopy (~05/01/22) History of hip surgery Hx of foot surgery History of surgery Social History Patient Tobacco Use Status: Never used Tobacco e-Cigarette/Vaping Use: Never Used Assessment & Plan Assessment & Plan (1) Obesity, morbid: Code(s): E66.01 - Morbid (severe) obesity due to excess calories Category: Medical Plan: Wt: 128 Kg ( 05/21 ), 09/20 Est kcal needs as per MSJ: 2500 (40% carb, 30% protein/fat) Est fluid needs as per 25-30 ml/d: 3800 Est prot per day as per 1 g/kg bw: 130 Recommend fiber intake : 8-10 g per day and gradually increase to 25-28 g per day for women and 35-38 g for men or as tolerated Recommend sodium intake per day : less than 2300 mg Educated patient on: ( R = reviewed V = verbalizes understanding N/R = needs review N/A = not applicable * Food sources of carbohydrate, adequate serving sizes and its role in various health conditions: R * Differences between complex carbohydrates a simple carbohydrates, role of fiber in diet: R * Lean protein sources of foods: R V NR * Differences between types of fats and role in diet (mono on saturated fat fatty acids, saturated fatty acids, trans fats): R V N/R * Food sources of sodium in salt and healthy modifications for heart health in kidney health: R V R/V * Vitamins and minerals: R V N/R * Healthy plate method concept: R V N/R * Physical activity: Benefits a precaution: R V N/R Patient Instructions: Work on having 3 meals a day and limiting the snack to only once a day Have a meal replacement in the evening Choose water, no sugar added beverages Coding Level of Care Code Nutr Indiv Subseq ([id number]) Diagnoses Obesity, morbid E66.01 Time Spent (min) 30
[2025-08-27 09:46] VITALS: BMI 47.1
== END 2025-08-27 09:52 | disposition home or self-care (01) ==
LOC: HO.ENCR 09:09
PROVIDERS: PCP Internal Medicine; Visit Provider Dietitian, Registered
DX: E66.01 Morbid (severe) obesity due to excess calories (principal)

== ENCOUNTER → 2025-08-27 09:08 | Outpatient (BNVA) | payer BC, SELFPAY | PROVIDERS: PCP Internal Medicine; Visit Provider Dietitian, Registered | DX: E66.01 Morbid (severe) obesity due to excess calories (principal); Z68.42 Body mass index [BMI] 45.0-49.9, adult; Z71.3 Dietary counseling and surveillance | CPT/HCPCS: 97803 ==

== ENCOUNTER 2025-08-31 10:56 | Outpatient (AMB) | payer BC, SELFPAY ==
--- NOTE | 2025-08-31 10:59 | A.OFFPC_ITS ---
Vital Signs 08/31/25 11:02 Height 5 ft 5 in Weight 128.367 kg BMI 47.1 BP 128/74 Blood Pressure Location Lt brachial Position Sitting Respiration 18 Pulse 81 Pulse Source Pulse Oximeter Temp 97.3 F Temp Source Temporal Artery Scan Pulse Oximetry (%) 97 Oxygen Delivery Method Room Air Intake Visit Reasons: Urgent Care Lita Kwong Certified Pathology Assistant Required: No Accompanied by: Self / Same As Patient Allergies aspirin (ASA) Allergy (Unknown, Verified 08/31/25 11:00) SWELLING Medication List - Last Reconciled 08/31/25 by EARL Padron atenolol 25 mg PO DAILY 90 days bupropion HCl XL 300 mg PO DAILY cephalexin 500 mg PO QID CPAP As directed doxycycline hyclate 100 mg PO BID lorazepam 1 mg PO DAILY PRN losartan 100 mg PO DAILY melatonin 5 mg PO BEDTIME PRN multivitamin (Daily Multi-Vitamin tablet) 1 tab PO DAILY Tobacco use date assessed: 04/13/25 Dental Screening Dental Screen Date: 08/31/25 Did you have a dental visit in the last 12 months?: No Did you have a dental problem in the last 6 months where you did not have access to dental care?: No Was dental information given to patient?: Patient has dentist HPI HPI Comments History of Present Illness Details 54-year-old male with history of hyperte nsion, major depressive disorder, cerebral palsy, anxiety, obesity, obstructive sleep apnea presents to the office today for management of chronic conditions and UC follow up. Hypertension-initially uncontrolled 128/74. Continues on losartan 100 mg daily and atenolol 25 mg daily. Depression- mood stable. Follows with an [employer]. Stable on bupropion and lorazepam once nightly for sleep works well. OSA_ compliant with CPAP Morbid obesity- BMI 47.1. 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 Has a list of foods to eat which he has been following. No formal exercise. Concerns: Developed an abscess on the lateral L thigh that had been growing in size but felt it had been present for several years. I&D performed. Culture taken but results not available at this time. Lita UC. Started on eyyd326of bud which has has been taking for 6 days. Also doing warm soaks. He is unable to see the area. No fevers or chills. No pain or drainage ROS: see hpi EXAM: Constitutional - Awake and Alert, No apparent distress Eyes - PERRL Cardiovascular - S1S2, RRR, No edema Respiratory - Normal lung expansion, Normal respiratory effort, No respiratory distress, CTA bilaterally Extremities - no calf tenderness bilaterally, no swelling Skin - Warm/Dry. 2cm x 2cm area of erythema/induration. No fluctuance or drainage. Very faint erythema extending from skin marker Neurological - Alert & oriented x3 Psychological - Appropriate affect PFSH Medical History Colon polyps Hypertension Major depressive disorder Asthma Anxiety and depression Nocturnal hypoxemia due to obesity Obesity, morbid Excessive daytime sleepiness Cerebral palsy ONDINA (obstructive sleep apnea) Obesity (BMI 35.0-39.9 without comorbidity) Surgical History History of colonoscopy (~05/01/22) History of hip surgery Hx of foot surgery History of surgery Social History [facility] Patient Tobacco Use Status: Never used Tobacco e-Cigarette/Vaping Use: Never Used service: No Current occupational status: employed Current occupation: [employer] Questionnaire Thrive Questionnaire Date Thrive assessed: 03/07/25 AUDIT C Alcohol Use Questionnaire (AUDIT-C) 1. How often do you have a drink containing alcohol?: Monthly or less 2. How many drinks containing alcohol do you have on a typical day when you are drinking?: 1 or 2 3. How often do you have six or more drinks on one occasion?: Never Total Score: 1 LAURI-7 AMB Questionnaire LAURI-7 Date LAURI - 7 assessed: 03/07/25 Source: Developed by Drs. Matias Chiang, Sangeeta Parekh, Jose Martinez and colleagues, with an educational joan from [employer]. Physical exam (Primary Care) Vital Signs: Last Vital Signs Temp 97.3 F 08/31/25 11:02 Pulse 81 08/31/25 11:02 Resp 18 08/31/25 11:02 BP 128/74 08/31/25 11:02 Pulse Ox 97 08/31/25 11:02 Oxygen Delivery Method Room Air 08/31/25 11:02 BMI result Body Mass Index 47.1 Tobacco/Smoking Status: Tobacco use Status Tobacco use date assessed 04/13/25 08/31/25 10:59 Patient Tobacco Use Status Never used Tobacco 08/31/25 10:59 e-Cigarette/Vaping Use Never Used 08/31/25 10:59 Thrive Assessment: Date of Thrive Assessment Date Thrive assessed 03/07/25 08/31/25 10:59 Coding Level of Care Code Est Pt Level 4 (08446) Complex visit Add On G2211 Diagnoses Cellulitis of left leg L03.116 ONDINA (obstructive sleep apnea) G47.33 Hypertension I10 Major depressive disorder F32.9 Obesity (BMI 35.0-39.9 without comorbidity) E66.9 Assessment & Plan Assessment & Plan (1) Cellulitis of left leg: Code(s): L03.116 - Cellulitis of left lower limb Category: Medical Plan: s/p I&D. Awaiting culutre results. Still with cellulitis. Afebrile. Add keflex 500gm QID x7 days and extend doxy 100mg BID x 7 more days. Continue with warm soaks (2) ONDINA (obstructive sleep apnea): Comment: HE HAS MILD TO MODERATE DEGREE OF OBSTRUCTIVE SLEEP APNEA, ASSOCIATED WITH MILD NOCTURNAL HYPOXEMIA. PATIENT HAS BEEN USING CPAP REGULARLY WITH 100% COMPLIANCE, HE IS BENEFITING AND REPORTS THAT HE HAS GOOD QUALITY OF SLEEP. Code(s): G47.33 - Obstructive sleep apnea (adult) (pediatric) Category: Medical Plan: Continue with cpap usage as well as weihgt loss efforts. (3) Hypertension: Code(s): I10 - Essential (primary) hypertension Category: Medical Plan: Controlled. Continue losartan and atenolol. Low sodium diet (4) Major depressive disorder: Code(s): F32.9 - Major depressive disorder, single episode, unspecified Category: Medical Plan: Stable. Continue following with psychiatry. Continue on bupropion and lorazepam prn (5) Obesity (BMI 35.0-39.9 without comorbidity): Comment: DISCUSSED ABOUT WEIGHT , CANNOT DO ANY EXERCISE , WILL TRY TO REDUCE CALORIES , INTAKE . Code(s): E66.9 - Obesity, unspecified Category: Medical Plan: Continue following with nutrition. Diet lowed in calories with increased protein, fruits, vegetables. Limit refined sugars simple carbs and highly processed food. Exercise as able Plan Cancel appt next month and schedule in 6 months for follow up. Labs orderd for today. Orders: Orders Complete Blood Count Auto Diff 08/31/25 G47.33 - Obstructive sleep apnea (adult) (pediatric), I10 - Essential (primary) hypertension, L03.116 - Cellulitis of left lower limb Lipid Panel 08/31/25 G47.33 - Obstructive sleep apnea (adult) (pediatric), I10 - Essential (primary) hypertension, L03.116 - Cellulitis of left lower limb Basic Metabolic Panel 08/31/25 G47.33 - Obstructive sleep apnea (adult) (pediatric), I10 - Essential (primary) hypertension, L03.116 - Cellulitis of left lower limb Medications: New cephalexin 500 mg PO QID 28 caps 0RF doxycycline hyclate 100 mg PO BID 14 caps 0RF
[2025-08-31 11:02] VITALS: BP 128/74; PULSE 81; RESP 18; TEMP 36.3; O2SAT 97; BMI 47.1
--- OUTSIDE RECORDS SUMMARY | 2025-08-31 13:27 | XMS_ITS | Patient Health Record ---
Author Organization [facility] Address [address] [place] [address] Care Team Providers Care Real Estate Economist Name Role Phone Mercedes (RETIRED) Huang PEREZ Primary Care Provide Alireza Padilla Jr Unavailable [phone] Allergies Allergen (clinical drug ingredient) Drug/Non Drug Allergy documented on EMR Reaction Allergy Type Onset Date Status aspirin Aspirin Unknown Drug Allergy Active Reason For Referral No Information Medications Medication SIG (Take, Route, Frequency, Duration) Notes Start Date End Date Status Losartan Potassium 100 MG Tablet Oral; Duration: 60 Active traZODone HCl 50 MG Tablet Oral; Duration: 30 Active Atenolol 25 MG Tablet Oral; Duration: 30 Active buPROPion HCl ER (XL) 450 MG Tablet Extended Release 24 Hour 1 tablet in the morning Orally Once a day Active MiraLax (colon prep) 17 GM/SCOOP Powder mixed with Gatorade or Crystal Light Orally begin at 5:00 p.m. the day before the procedure; Duration: 1 day 03/25/2022 Active Immunizations Vaccine Route Administration Date Status Comme nts Influenza Unknown 06/17/2021 Administered Social History Tobacco Use: Social History Observation Description Date Details (start date - stop date) Never Smoker NA - NA Social History Drugs/Alcohol: Social Info Question Answer Notes Alcohol Screen Did you have a drink containing alcohol in the past year? Yes How often did you have a drink containing alcohol in the past year? 2 to 4 times a month (2 points) How many drinks did you have on a typical day when you were drinking in the past year? 3 or 4 drinks (1 point) Points 3 Interpretation Negative Tobacco Use: Social Info Question Answer Notes Tobacco Use/Smoking Patient is a nonsmoker Additional Details Category Social Info Options Details Miscellaneous: Marital status: single Occupation: [employer] Problems Problem Type SNOMED Code ICD Code Onset Dates Problem Status W/U Status Risk Notes Problem Colon cancer screening (980660540) Colon cancer screening (Z12.11) Active confirmed Problem Pre-procedure evaluation check (249108653) Encounter for other preprocedural examination (Z01.818) Active confirmed Plan Of Treatment Future Test Test Name Order Date COLONOSCOPY 03/25/2022 Insurance Providers Payer Name Payer Address Payer Phone Subscriber Number Group Number Insured Name Patient Relationship to Insured Coverage Start Date Coverage End Date [facility] [employer] PROF[employer]AL CLAIMS [address] [place] [address] [id number] [address]MA MCKEON Self - patient is the insured Medical (General) History Medical History History ICD Code ONDINA/CPAP asthma hypertension Anxiety/depression Surgical History Surgery Date(Month/Year) MULTIPLE SURGERIES DUE TO CP REPLACED CARTILEDGE AND PINS IN BOTH FEET/HEEL CORD LENTHENED /RIGHT HIP ROTATED 2009,2014
== END 2025-08-31 11:34 | disposition home or self-care (01) ==
LOC: HO.HMCHD 10:57
PROVIDERS: PCP Physician Assistant; Visit Provider Physician Assistant
DX: Z23 Encounter for immunization (principal)

== ENCOUNTER 2025-08-31 11:36 | Outpatient (REF) | payer BC, SELFPAY ==
[2025-08-31 13:06] LABS: MANUAL DIFF FLAG NO
[2025-08-31 13:33] LABS: Hematocrit 45.6 % (42.0-52.0); Hemoglobin 15.4 g/dl (14.0-18.0); Imm Gran Abs Auto 0.03 X10*3/uL (0.00-0.03); Imm Gran Pct Auto 0.4 % (0.0-0.4); Lymphocytes Absolute Auto 1.2 X10*3/uL (1.2-4.9); Mean Corpuscular HGB Conc 33.8 g/dl (31.0-36.0); Mean Corpuscular Hemoglobin 29.2 pg (27.0-33.0); Mean Corpuscular Volume 86.4 fL (80.0-98.0); NRBC Abs Auto 0.000 X10*3/uL (0.0-0.012); NRBC Pct Auto 0.0 /100WBC (0.0-0.2); Platelet Count 291 X10*3/uL (160-400); Red Blood Count 5.28 X10*6/uL (4.60-5.80); White Blood Count 6.8 X10*3/uL (4.8-10.8)
[2025-08-31 14:04] LABS: Anion Gap 12 (12-20); Blood Urea Nitrogen 25 mg/dL (9-16); Calcium 10.0 mg/dL (8.4-10.2); Carbon Dioxide 23 mmol/L (22-29); Chloride 108 mmol/L (96-108); Cholesterol 172 mg/dL (<200); Estimated Glomerular Filt Rate > 60; HDL Cholesterol 39 mg/dL (>40); Potassium 4.3 mmol/L (3.3-5.1); Sodium 139 mmol/L (135-145); Triglycerides 110 mg/dL (<150)
== END 2025-08-31 11:37 | disposition home or self-care (01) ==
LOC: HO.10HDL 11:36
PROVIDERS: Visit Provider Physician Assistant
DX: I10 Essential (primary) hypertension (principal); G47.33 Obstructive sleep apnea (adult) (pediatric); L03.116 Cellulitis of left lower limb; F32.9 Major depressive disorder, single episode, unspecified; E66.9 Obesity, unspecified; Z79.2 Long term (current) use of antibiotics; Z79.899 Other long term (current) drug therapy
CPT/HCPCS: 36415; 80048; 80061; 85025; 90471; 90656

== ENCOUNTER 2025-09-11 09:32 | Outpatient (AMB) | payer BC, SELFPAY ==
--- OUTSIDE RECORDS SUMMARY | 2025-09-11 03:00 | XMS_ITS ---
Author Organization [facility] Address [address] [facility] [place] [address] Care Team Providers Care Dispatcher Maintenance Name Role Phone Kierra Ames Primary Care Provider UnavailSwapna Oleary Unavailable [phone] Allergies Allergen (clinical drug ingredient) Drug/Non Drug Allergy documented on EMR Reaction Allergy Type Onset Date Status aspirin Aspirin swelling Drug Allergy Active REASON FOR VISIT Painful nail(s) aggrevated by shoes and causing difficulty standing/walking., Ingrown Nail Medications Medication SIG (Take, Route, Frequency, Duration) Notes Start Date End Date Status Wellbutrin XL 300 MG 1 tablet every morn ing Orally Once a day Active zzzCompression Stockings 20-30mm Hg . . .; Duration: . Not-Takin g LORazepam 1 MG Orally PRN Activ e traZODone HCl Not-Ta tadeo Valsartan 160 MG 1 tablet Orally Once a day; Duration: 30 day(s) Not-Taking Atenolol 25 MG TAKE 1 TABLET BY OSEAS EVERY DAY Oral; Duration: 90 Active Losartan Potassium 25 MG as directed Active Ciclopirox Olamine 0.77% external Apply to effected areas twice a day; Duration: 30 days 05/27/2016 Not-Takin g Melatonin PRN Active Escitalopram Oxalate 5 MG 1 tablet Orall y Once a day Not-Taking Losartan Potassium 25 MG 1 tablet Orally Once a day; Duration: 30 day(s) Not-Taking Social History Tobacco Use: Social History Observation [...] nk containing alcohol in the past year? Monthly or less (1 point) How many drinks did you have on a typical day when you were drinking in the past year? 1 or 2 drinks (0 point) How often did you have six o r more drinks on one occasion in the past year? Never (0 point) Points 1 Interpretation Negative Vital Signs Height 5ft 8in in 09/11/2025 Weight 281 lbs 09/11/2025 BMI 42.72 kg/m2 09/11/2025 Blood pressure systolic 135 mm Hg 09/11/20 25 Blood pressure diastolic 80 mm Hg 025 Procedures Procedure Date Ordered Date Performed Result Body Sit e 86882-YURQKEV NAIL, 6 OR MORE 09/11/2025 N/A [id number]-[id number] Plate 09/11/2025 N/A Encounters Encounter Location Date Provider Diagnosis [facility] [address] 09/11/2025 Swapna Yi Tinea unguium B35.1 ; Ingrown nail L60.0 ; Pain in right toe(s) M79.674 ; Pain in left toe(s) M79.675 and 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 Assessments Encounter Date Diagnosis (ICD Code) Assessment Notes Treatment Notes Treatment Clinical Notes Section Notes 09/11/2025 Tinea unguium (ICD-10 - B35.1) 09/11/2025 Ingrown nail (ICD-10 - L60.0) 09/11/2025 Pain in right toe(s) (ICD-10 - M79.674) 09/11/2025 Pain in left toe(s) (ICD-10 - M79.675) 09/11/2025 Ataxic cerebral palsy (ICD-10 - G80.4) Plan Of Treatment Pending Test Test Name Order Date [id number] NAIL, 6 OR MORE 09/11/2025 [id number] Plate 09/11/2025 Next Appt Details Follow Up: 2 Weeks,prn, Reas on: Provider Name:Swapna Yi , 12/20/2025 08:30:00 AM, [address] [facility], [place], [address], Procedure Notes * Category Sub-Category Detail Notes Nail Avulsion Procedure A fine sterile e levator was placed between the eponychium, nail fold, and nail plate to separate the structures. A sterile nail splitter, and/or sterile 316 blade, was then used to longitudinally section the nail along its entire length through the eponychium to the area under the nail fold. The offending portion of nail was from the nail bed with a rolling action and then removed with a hemostat. No underlying bone was identified. There was minimal bleeding as hemostasis was achieved through the temporary use of either a digital tourniquet or the aforementioned local with epinephrine. A bacitracin sterile dressing was applied. Local wound aftercare instructions were discussed and dispensed. The patient was informed of both conservative and future surgical procedures to prevent recurrence. Tylenol or Motrin was recommended for pain or discomfort - 66960, Pt DEFERS matricectomy Anesthesia , was accomplished T OPICALLY with Lidocaine Hydrochloride Jelly 2 percent Location , Medial nail border , T8 Debride Nail 6-10 Nail debridement Due to the cl inical pathology outlined in the exam findings, performance of this nail treatment is medically necessary as its management by an unskilled/untrained nonprofessional would put this patients foot and overall health at risk. Therefore, debridement to affected nail(s), as described in exam ( TA, T1, T2, T3, T4, T6, T9, ), was performed exclusively by the physician of record to reduce/remove overall nail length, girth, thickness, subungual debris, and necrotic tissue, by manual and/or electrical means through the use of a nail nipper and/or dremel-type tool grinder operator surface, to a more viable healthy nail plate or bed tissue 6-10 nails in total. Silver nitrate was used for any petechial bleeding as necessary. Definitive antifungal treatment options, both pharmaceutical and surgical, have been reviewed and discussed with the patient. The patient solely prefers the use of intermittent/as needed professional debridement services for their nail condition and understands the need for additional periodic treatments to maintain effectiveness in symptomatic relief - 02753 Patient chooses debridement treatmen t only; no pharmaceutical tx Progress Notes * Ana SANTILLAN:[birth year] (55 yo M)Acc No.[id number]:09/11/2025 Progress Note Patient: Jac MONTANO Provider: Maxim Yi DPM :1970 A ge:55 Y S ex:Male Date:09/11/2025 [address]:[address] [place], [place] [id number] Pcp:Kierra Ames Subjective: * Chief Complaints: * P ainful nail(s) aggrevated by shoes and causing difficulty standing/walking.Ingrown Nail * HPI: P ainful Nails: Pt States Last PCP Visit: D ate: 1 11/01/2024 * ROS: G eneral/Constitutional: Nausea d enies. V omiting d enies. H khalida Thirst d enies. L oss appetite d enies. C hills d enies. F atigue d enies.?Fever d enies. N ight Sweats d enies. U nexplained weight loss d enies. O phthalmologic: Blurred vision d enies. R ed eye d enies. ? H EENTM: Dentures d enies. D izziness d enies. G lasses/contacts a dmits. R etinopathy d enies. B lurred/double vision d enies. T MJ?denies. D ischarge/drainage d enies. I mplants d enies. H millie of hearing denies. D ifficulty chewing/swallowing/speaking d enies. N ose bleeds d enies.?Sore mouth d enies. S wollen glands d enies. R espiratory: On Oxygen d enies. P neumonia/pleurisy d enies.?Bronchitis d enies. E mphysema d enies. C oughing d enies. C ough blood?denies. S hortness of breath d enies. W heezing d enies. C ardiovascular: Pacemaker d enies. M REEL AND REWINDER OPERATOR d enies. W PW d enies. C HF d enies. H eart attack d enies. S eptal defect d enies. R apid beat d enies. C hest pain d enies. A trial Fib. d enies. M urmur/Palpitations d enies. G astrointestinal: Hemorrhoids d enies. S tomach/Abdominal pain d enies. D ark blood stool d enies. I rritable bowel d enies. C onstipation d enies. D iarrhea d enies. V omiting d enies. H ematology: Swelling d enies. B ruising d enies. B leeding problem d enies. G enitourinary: Blood urine d enies. F requent/Painfu/urination/bladder control d enies. K idney stones d enies. I nfection (UTI) d enies. N ephropathy d enies. M usculoskeletal: Hammertoes d enies. B unions d enies. S coliosis/kyphosis d enies. M uscle cramps / walking d enies. G eneralized aches and pains?denies. W eakness d enies. I nteg.: Causey d enies. S cars d enies. C orns/calluses?admits. I ngrown nails , admits. P ainful nails a dmits. R ashes d enies. N eurologic: Difficulty sleeping d enies. B ipolar d enies. B rain disorder d enies. B alance trouble d enies. C onfusion d enies. F ainting/blackouts d enies. H eadache d enies. T remors d enies. * Medical History: * Surgical History: f oot surgery hip surgery * Hospitalization/Major Diagno stic Procedure: [facility]; Fell bruised rib 04/2015[facility]- fell needed stiches 03/2025urgent care- cyst that burst 08/21 * Family History: M other: alive, diagnosed with Other specified conditions influencing health status. F ather: alive, diagnosed with Unspecified essential hypertension. P aternal Grand Mother: kidney/liver disease. P aternal aunt: cancer. P aternal uncle: diabetes. * Social History: T obacco Use: T obacco use other than smoking A re you an other tobacco user? N o Tobacco Control (Standard) T obacco use: N onsmoker A dditional Findings: Tobacco non-user C urrent nonsmoker D rugs/Alcohol: D rugs H ave you used drugs other than those for medical reasons in the past 12 months? Y es P rescription opiates? Y es for back M iscellaneous: C affeine: yes, soda tea, , 1-2 cups per day. Children: no, none. Exercise: yes, walking,. Marital status: single. 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 D rug/Alcohol: A CINDY-C (Standard) D id you have a drink containing alcohol in the past year? Y es H ow often did you have a drink containing alcohol in the past year? M onthly or less (1 point) H ow many drinks did you have on a typical day when you were drinking in the past year? 1 or 2 drinks (0 point) H ow often did you have six or more drinks on one occasion in the past year? N ever (0 point) P oints 1 I nterpretation N egative * Medications: T akingLosartan Potassium 25 MG Tablet as directed Melatonin , Notes to Pharmacist: PRNAtenolol 25 MG Tablet TAKE 1 TABLET BY MOUTH EVERY DAY Oral Wellbutrin XL 300 MG Tablet Extended Release 24 Hour 1 tablet every morning Orally Once a day LORazepam 1 MG Tablet Orally , Notes to Pharmacist: PRNTaking Losartan Potassium 25 MG Tablet as directed Taking Melatonin , Notes to Pharmacist: PRNTaking Atenolol 25 MG Tablet TAKE 1 TABLET BY MOUTH EVERY DAY Oral Taking Wellbutrin XL 300 MG Tablet Extended Release 24 Hour 1 tablet every morning Orally Once a day Taking LORazepam 1 MG Tablet Orally , Notes to Pharmacist: PRNNot-Taking/PRNzzzCompression Stockings 20-30mm Hg 1 pair closed toe- knee high . . . Valsartan 160 MG Tablet 1 tablet Orally Once a day traZODone HCl Losartan Potassium 25 MG Tablet 1 tablet Orally Once a day Escitalopram Oxalate 5 MG Tablet 1 tablet Orally Once a day Ciclopirox Olamine 0.77% Cream external Apply to effected areas twice a day Medication List reviewed and reconciled with the patientNot-Taking/PRN zzzCompression Stockings 20-30mm Hg 1 pair closed toe- knee high . . . Not-Taking/PRN Valsartan 160 MG Tablet 1 tablet Orally Once a day Not-Taking/PRN traZODone HCl Not-Taking/PRN Losartan Potassium 25 MG Tablet 1 tablet Orally Once a day Not-Taking/PRN Escitalopram Oxalate 5 MG Tablet 1 tablet Orally Once a day Not-Taking/PRN Ciclopirox Olamine 0.77% Cream external Apply to effected areas twice a day Medication List reviewed and reconciled with the patient * Allergies: A spirin: swellingyes[Allergies Verified] Objective: * Vitals: H t: 5ft 8in, Wt:281, BMI:42.72, Shoe size: 10.5, BP:135/80mm Hg, Ht-cm: 172.72 cm, Wt-k.46 kg. * Examination: G eneral Examination: GENERAL APPEARANCE: Ivy delgado a pleasant, alert, well nourished, well developed, well hydrated individual, who demonstrates proper attention to hygene/body habitus, and is in no acute distress. ORIENTED: p erson, place, and time. V ascular: DP PULSES (B): 3 /4, B/L. PT PULSES (B): 3 /4, B/L. CAPILLARY FILL TIME: i mmediate, all digits, B/L. TROPHIC CONDITION-TEXTURE/ELASTICITY/TURGOR/HAIR GROWTH (B):?normal, B/L. TEMPERTURE GRADIENT (C): n ormal, warm to cool, proximal to distal, B/L, B/L. PIGMENTATION: n ormal, B/L. D ermatologic: SKIN FINDINGS: S kin exam reveals Keratotic lesion(s) located at , SUB MTH (s) , 5 , B/L, SUB MTH (s), 1, Right. N ails: NAILS are: e longated,overgrown,dystrophic,greater than 3mm thick,discolored and friable with crumbly malodorous subungual debris, with pain on palpation,TA, T1, T2, T3, T4, T6, T9. I ngrown Nail: INSPECTION: R sandy nail incurvation, pain on palpation, groove hypertrophy , Medial nail border, T8. Assessment: * Assessment: 1. T inea unguium - B35.1 2 . I ngrown nail - L60.0 (Primary) ?Specify :medial T8 3 . P ain in right toe(s) - M79.674 4 . P ain in left toe(s) - M79.675 5 . 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 T inea unguium P rocedure: 13978-[id number] NAIL, 6 OR MORE * Procedures: D ebride Nail 6-10: Nail debridement D ue to the clinical pathology outlined in the exam findings, performance of this nail treatment is medically necessary as its management by an unskilled/untrained nonprofessional would put this patients foot and overall health at risk. Therefore, debridement to affected nail(s), as described in exam ( TA, T1, T2, T3, T4, T6, T9, ), was performed exclusively by the physician of record to reduce/remove overall nail length, girth, thickness, subungual debris, and necrotic tissue, by manual and/or electrical means through the use of a nail nipper and/or dremel-type tool grinder operator surface, to a more viable healthy nail plate or bed tissue 6-10 nails in total. Silver nitrate was used for any petechial bleeding as necessary. Definitive antifungal treatment options, both pharmaceutical and surgical, have been reviewed and discussed with the patient. The patient solely prefers the use of intermittent/as needed professional debridement services for their nail condition and understands the need for additional periodic treatments to maintain effectiveness in symptomatic relief - 62277. Patient chooses d ebridement treatment only; no pharmaceutical tx. N ail Avulsion: Location , Medial nail border, T8. Anesthesia , was accomplished TOPICALLY with Lidocaine Hydrochloride Jelly 2 percent. Procedure A fine sterile elevator was placed between the eponychium, nail fold, and nail plate to separate the structures. A sterile nail splitter, and/or sterile 316 blade, was then used to longitudinally section the nail along its entire length through the eponychium to the area under the nail fold. The offending portion of nail was from the nail bed with a rolling action and then removed with a hemostat. No underlying bone was identified. There was minimal bleeding as hemostasis was achieved through the temporary use of either a digital tourniquet or the aforementioned local with epinephrine. A bacitracin sterile dressing was applied. Local wound aftercare instructions were discussed and dispensed. The patient was informed of both conservative and future surgical procedures to prevent recurrence. Tylenol or Motrin was recommended for pain or discomfort - 76766, Pt DEFERS matricectomy. * Procedure Codes: 1 1721 DEBRIDE NAIL, 6 OR MORE, Modifiers: XS 09638 Avulsion Plate, Modifiers: T8 * Follow Up: 2 Weeks,prn * Images: * Sign off status: Completed true * Provider: Maxim Yi DPM Date: 11/12/2024 Generated for Lorne burks/Evan/Melissaranloretoitting on: 11/12/2024 11:07 AM EST History and Physical Notes * HPI (History of Present Illness) Category Sub-Category Detail Notes Category Not es Painful Nails Pt States Last PCP Visit: Date:: 08/31/2025 Examination Category Sub-Category Detail Notes Category Not es Ingrown Nail INSPECTION: Reveals nail inc urvation, pain on palpation, groove hypertrophy , Medial nail border, T8 Dermatologic SKIN FINDINGS: Skin exam reveal s Keratotic lesion(s) located at , SUB MTH (s) , 5 , B/L, SUB MTH (s), 1, Right ULCER: General Examination GENERAL APPEARANCE: Reveals a pleasant, alert, well nourished, well developed, well hydrated individual, who demonstrates proper attention to hygene/body habitus, and is in no acute distress ORIENTED: person, place, and t julio Vascular DP PULSES (B): 3/4, B/L PT PULSES (B): 3/4, B/L CAPILLARY FILL TIME: immediate, all digi ts, B/L TEMPERTURE GRADIENT (C): normal, warm to cool, proximal to distal, B/L, B/L TROPHIC CONDITION-TEXTURE/ELASTICITY/TURGOR/HAIR GROWTH (B): normal, B/L PIGMENTATION: normal, B/L Nails NAILS are: elongated,overgr own,dystrophic,greater than 3mm thick,discolored and friable with crumbly malodorous subungual debris, with pain on palpation,TA, T1, T2, T3, T4, T6, T9
--- NOTE | 2025-09-11 09:47 | A.OFFVIS_ITS ---
Vital Signs 09/11/25 09:48 Height 5 ft 5 in Weight 281 lb 1.43 oz BMI 46.8 BP 142/90 H Blood Pressure Location Lt brachial Pulse 70 Pulse Source Pulse Oximeter Pulse Oximetry (%) 96 Oxygen Delivery Method Room Air Intake Visit Reasons: Obstructive sleep apnea Intake Note: pt is here for follow up and states he is feeling , cpap is going well, breathing is pretty good. Communications Editor Required: No Credentialing Assistant: Credentialing Assistant offered & declined Allergies aspirin (ASA) Allergy (Unknown, Verified 09/11/25 09:52) S[facility]LLING [facility] Medical History Colon polyps Hypertension Major depressive disorder Asthma Anxiety and depression Nocturnal hypoxemia due to obesity Obesity, morbid Excessive daytime sleepiness Cerebral palsy ONDINA (obstructive sleep apnea) Obesity (BMI 35.0-39.9 without comorbidity) Surgical History History of colonoscopy (~05/01/22) History of hip surgery Hx of foot surgery History of surgery [facility] Tobacco Use Status: Never used Tobacco e-Cigarette/Vaping Use: Never Used [email or web address] service: No Current occupational status: employed Current occupation: [employer] Review of Systems Const All systems reviewed & are unremarkable except as noted in HPI and below Reports snoring ENT Reports nasal congestion (mild intermittent ) and Reports disequilibrium Card Denies chest pain and Denies leg edema Resp Reports cough (mild intermittent ), Reports excessive phlegm production (in AMs .) and Reports snoring GI Reports heartburn (mild , in AMs ) Musc Reports abnormal gait (weak lower extermities sec. to cereberal palsy ) and Reports atrophy Neuro Reports abnormal gait (weak lower extermities sec. to cereberal palsy ) and Reports disequilibrium Psych Reports no additional complaints Physical Exam Vital Signs: Last Vital Signs Pulse 70 09/11/25 09:48 BP 142/90 H 09/11/25 09:48 Pulse Ox 96 09/11/25 09:48 Oxygen Delivery Method Room Air 09/11/25 09:48 BMI result Body Mass Index 46.8 No change in weight Const General: healthy appearing (Except for being overweight), comfortable, no acute distress, alert and awake Orientation/consciousness: patient oriented x3 HEENT Head: Yes normal to inspection General nose exam: No nasal polyps present and No nasal discharge present Face and sinus: Yes sinuses nontender Mouth: oropharynx normal Throat: Yes posterior oropharynx normal Eyes General: appearance normal, both eyes and all related structures Neck Neck: Yes normal visual inspection, Yes no lymphadenopathy, Yes trachea midline and Yes no JVD Thyroid: Thyroid normal Chest Chest palpation & inspection: normal inspection of the chest, normal palpation of entire chest wall and no tenderness Resp Effort & Inspection: normal respiratory effort Auscultation: clear to auscultation bilaterally, no crackles and no wheezes Percussion: percussion normal Cardio Palpation: normal PMI Rate: regular rate Rhythm: regular rhythm Heart sounds: no gallops and no murmurs Peripheral pulses: Peripheral pulses 2+ throughout GI Palpation (GI): Soft to palpation, nontender, No hepatosplenomegaly present and no masses Auscultation: normal bowel sounds Back/Spine/Pelvis Thoracic/Lumbar Spine: thoracic and lumbar spine normal to inspection and thoraco-lumbar ROM limited Skin General skin exam: no rashes or lesions noted Neuro General: patient oriented x3, No gait normal (Weak and spastic, uses a crutch on the right side.) and no focal motor deficits Cranial nerves: Yes CN's II-XII intact bilaterally Extrem General: Yes normal to inspection, Yes no clubbing, cyanosis or edema and Yes no calf tenderness Psych Appearance: grossly normal and well kempt Speech and movement: Normal speech and movement present Results Reviewed Results Reviewed: COMPLIANCE REPORT FOR THE LAST 30 NIGHTS IS REVIEWED. HE HAS USED 30/30 NIGHTS,. 100% AVERAGE USE IT PER NIGHT 6 HOURS 27 MINUTES. .NO SIGNIFICANT AIR LEAK NOTED RESIDUAL AHI ONLY 0.8 Assessment & Plan Assessment & Plan (1) ONDINA (obstructive sleep apnea): Comment: HE HAS MILD TO MODERATE DEGREE OF OBSTRUCTIVE SLEEP APNEA, ASSOCIATED WITH MILD NOCTURNAL HYPOXEMIA. PATIENT HAS BEEN USING CPAP REGULARLY WITH 100% COMPLIANCE, HE IS BENEFITING AND REPORTS THAT HE HAS GOOD QUALITY OF SLEEP. Code(s): G47.33 - Obstructive sleep apnea (adult) (pediatric) Category: Medical Plan: COMMENDED FOR GOOD COMPLIANCE AND ADVISED TO CONTINUE USING THE CPAP REGULARLY EVERY NIGHT. (2) Nocturnal hypoxemia due to obesity: Comment: NOCTURNAL HYPOXEMIA IS PART OF OBESITY AND OBSTRUCTIVE SLEEP APNEA. HOPEFULLY IT WILL RESOLVE WITH THE USE OF THE NONINVASIVE VENTILATORY SUPPORT. Code(s): E66.9 - Obesity, unspecified; G47.36 - Sleep related hypoventilation in conditions classified elsewhere Category: Medical Plan: CLINICALLY HIS NOCTURNAL HYPOXEMIA HAS RESOLVED WITH THE USE OF CPAP (3) Obesity (BMI 35.0-39.9 without comorbidity): Comment: CURRENT WEIGHT 281 LB AND BMI 46.8. , CANNOT DO ANY EXERCISE , WILL TRY TO REDUCE CALORIES , INTAKE . Code(s): E66.9 - Obesity, unspecified Category: Medical Plan: TALKED ABOUT THE DIET AND I ADVISED HIM TO CUT THE PORTIONS FROM THE MEALS. Coding Level of Care Code Est Pt Level 3 (06755) Diagnoses ONDINA (obstructive sleep apnea) G47.33 Nocturnal hypoxemia due to obesity E66.9; G47.36 Obesity (BMI 35.0-39.9 without comorbidity) E66.9
[2025-09-11 09:48] VITALS: BP 142/90; PULSE 70; O2SAT 96; BMI 46.8
--- OUTSIDE RECORDS SUMMARY | 2025-09-11 11:07 | XMS_ITS | Patient Health Record ---
Author Organization [facility] Address [address] [place] [address] Care Team Providers Care [place]fgrass Technician Name Role Phone Mercedes (RETIRED) Huang PEREZ Primary Care Provide Alireza Padilla Jr Unavailable [phone] Allergies Allergen (clinical drug ingredient) Drug/Non [...] Status Risk Notes Problem Colon cancer screening (899168216) Colon cancer screening (Z12.11) Active confirmed Problem Pre-procedure evaluation check (021414594) Encounter for other preprocedural examination (Z01.818) Active confirmed Plan Of Treatment Future Test Test Name Order Date COLONOSCOPY 03/25/2022 Insurance Providers Payer Name Payer Address Payer Phone Subscriber Number Group Number Insured Name Patient Relationship to Insured Coverage Start Date Coverage End Date [facility] [employer] [address] [place] [address] [id number] RUMA MCKEON Self - patient is the insured Medical (General) History Medical History History ICD Code ONDINA/CPAP asthma hypertension Anxiety/depression Surgical History Surgery Date(Month/Year) MULTIPLE SURGERIES DUE TO CP REPLACED CARTILEDGE AND PINS IN BOTH FEET/HEEL CORD LENTHENED /RIGHT HIP ROTATED 2009,2014
== END 2025-09-11 10:06 | disposition home or self-care (01) ==
LOC: HO.HPS 09:32
PROVIDERS: PCP Internal Medicine; Visit Provider Internal Medicine
DX: G47.33 Obstructive sleep apnea (adult) (pediatric) (principal); E66.9 Obesity, unspecified; G47.36 Sleep related hypoventilation in conditions classified elsewhere
CPT/HCPCS: 99213